=== PATIENT | female | born 1995 | race African-American/Black ===

== ENCOUNTER 2018-04-22 21:11 | Emergency (ER) | payer MEDICAID ==
[~2018-04-22] VITALS: Ht 157.5 cm; Wt 114.8 kg
[~2018-04-22 21:11] MED LIST: IBUPROFEN600 MG ORAL; NKM
[2018-04-22 21:25] VITALS: BP 108/67
[2018-04-22] MEDS ORDERED: NKM (21:26)
--- NOTE | 2018-04-22 21:30 | NUR ---
ED Nurse Note: pt walked in c/o abd pain on LLQ, has been going on for couple of months. denies n/v/d. denies injuries. normal bm. pt abd soft nontender and nondistended. ERMD at the bedside. Active bs throughout. will cont monitor.
--- NOTE | 2018-04-22 21:33 | Emergency Room Report ---
History of Present Illness General Chief Complaint: Abdominal Pain Source: Patient Present Illness HPI Is a 22-year-old female with no significant past medical history. She presents with chief complaint of left lower quadrant pain. His been on and off for last couple months. She saw her primary care doctor who ordered an ultrasound of the abdomen and pelvic. She said it was normal. Pain is described as throbbing nature. Comes and goes. Lasts only a few seconds. Denies any other complaint. Her second issue is that her menstrual has lasted for 2 weeks now. This is abnormal for her. She did not check any test. Denies any other complaint. Asymptomatic from pain right now. Allergies: Coded Allergies: NO KNOWN ALLERGIES (Unverified Allergy, Unknown, 03/06/15) Patient History Past Medical History: see triage record, old chart reviewed Past Surgical History: none Pertinent Family History: none Social History: Denies: smoking Last Menstrual Period: mar Now: No - unknown : 1 Para: 1 Immunizations: other Reviewed Nursing Documentation: PMH: Agreed; PSxH: Agreed Nursing Documentation-PMH Past Medical History: No Stated History Review of Systems Eye: Denies: eye pain, blurred vision ENT: Denies: ear pain, nose congestion, throat swelling Respiratory: Denies: cough, shortness of breath Cardiovascular: Denies: chest pain, palpitations Gastrointestinal: Reports: abdominal pain; Denies: diarrhea, nausea, vomiting Musculoskeletal: Denies: back pain, joint pain Skin: Denies: rash Neurological: Denies: headache, numbness Endocrine: Denies: increased thirst, increased urine Hematologic/Lymphatic: Denies: easy bruising All Other Systems: negative except mentioned in HPI Physical Exam Vital Signs Date Time Temp Pulse Resp B/P (MAP) Pulse Ox O2 Delivery O2 Flow Rate FiO2 04/22/18 21:20 98.4 74 14 108/67 98 Room Air vital signs normal Sp02 EP Interpretation: reviewed, normal General Appearance: well appearing, no apparent distress, alert, obese Head: normocephalic, atraumatic Eyes: bilateral eye PERRL, bilateral eye EOMI ENT: hearing grossly normal, normal pharynx Neck: full range of motion, supple, no meningismus Respiratory: chest non-tender, lungs clear, normal breath sounds Cardiovascular #1: regular rate, rhythm, no murmur Gastrointestinal: normal bowel sounds, non tender, no mass, no organomegaly, no bruit, non-distended Musculoskeletal: back normal, gait/station normal, normal range of motion Psychiatric: mood/affect normal Skin: warm/dry Medical Decision Making Diagnostic Impression: Primary Impression: Abdominal pain Qualified Codes: R10.32 - Left lower quadrant pain Additional Impression: Vaginal bleeding ER Course Patient with abdominal pain. Is intermittent in nature. No evidence of acute abdomen. She has no discharge in no symptom consistent with PID or cervicitis. Not . We'll discharge home. CT/MRI/US Diagnostic Results CT/MRI/US Diagnostic Results : Imaging Test Ordered: CT abdomen and pelvis Impression No acute abdomen per radiologist Last Vital Signs Date Time Temp Pulse Resp B/P (MAP) Pulse Ox O2 Delivery O2 Flow Rate FiO2 04/22/18 21:20 98.4 74 14 108/67 98 Room Air Status: unchanged Disposition: HOME, SELF-CARE Condition: Stable Patient Instructions: Abdominal Pain, Adult Additional Instructions: Follow-up with your doctor in 7 days. Return if worse. George Ortiz MD Apr 22, 2018 21:33
--- NOTE | 2018-04-22 21:40 | NUR ---
ED Nurse Note: urine specimen obtained and sent
[2018-04-22 21:53] LABS: APPEARANCE,URINE CLEAR; BILIRUBIN, URINE NEGATIVE (NEGATIVE); GLUCOSE, URINE (UA) NEGATIVE (NEGATIVE); KETONES,URINE NEGATIVE (NEGATIVE); LEUKOCYTE ESTERASE ,URINE 1+ (NEGATIVE); NITRITE,URINE NEGATIVE (NEGATIVE); PH,URINE 8 (4.5-8.0); PROTEIN,URINE NEGATIVE (NEGATIVE); UROBILINOGEN,URINE NORMAL MG/DL (0.0-1.0)
[2018-04-22 22:01] LABS: COLOR,URINE YELLOW
--- NOTE | 2018-04-22 22:40 | NUR ---
ED Nurse Note: pt cleared to d/c per ER provider order, pt discharge instruction provided, pt advised to follow up with pcp or return to ed if s/s worsen or new s/s develop, pt education done via discussion and hand out, wristband removed, pt verbalized understanding and agrees with plan. pt vss, ambulatory w/ steady gait, resp even and unlabored, airway intact, all belongings left with pt.
[2018-04-22 22:41] VITALS: BP 114/62
--- NOTE | 2018-04-23 09:49 | Diagnostic Imaging Report ---
Indication: Abdominal pain Technique: Continuous helical transaxial imaging of the abdomen and pelvis was obtained from the lung bases to the pubic symphysis. No intravenous contrast was administered. Coronal 2-D reformats were also obtained. Automatic Exposure Control was utilized. Total Dose length Product (DLP): 980.[address] Dose Index Volume (CTDIvol): 19.75 mGy Comparison: none Findings: The lung bases are clear. Gallbladder is contracted. There is no nephrolithiasis or hydronephrosis identified. There is an umbilical hernia containing fat. The appendix is seen and appears normal. No evidence of bowel obstruction. No free fluid or free air. Bladder is nondistended. Uterus noted. Both ovaries demonstrated. Some vacuum phenomena within the sacroiliac joints noted. Study limited by nonadministration of IV and oral contrast. IMPRESSION: Small umbilical hernia containing fat. Normal appendix Degenerative arthrosis both sacroiliac joints. Contracted gallbladder not evaluated well The CT scanner at [facility] is accredited by the [employer] and the scans are performed using dose optimization techniques as appropriate to a performed exam including Automatic Exposure control.
== END 2018-04-22 22:41 | disposition home or self-care (01) ==
LOC: EMR 21:32
DX: R10.32 Left lower quadrant pain (principal); N93.9 Abnormal uterine and vaginal bleeding, unspecified; K42.9 Umbilical hernia without obstruction or gangrene
CPT/HCPCS: 74176; 81003; 81025; 99284

== ENCOUNTER 2018-05-09 15:25 | Emergency (ER) | payer MEDICAID ==
[~2018-05-09] VITALS: Ht 157.5 cm; Wt 98.9 kg
[2018-05-09 15:47] VITALS: BP 136/82
--- NOTE | 2018-05-09 15:50 | NUR ---
ED Nurse Note: Patient walked into ED from home. patient c/o vaginal bleeding for 12 days, patient reports that she has been saturating 5 pads daily. patient reports bruises on body without injury. Sister at bedside. a/o x4, ambulatory steady gait
[2018-05-09] MEDS ORDERED: Ketorolac 30mg Inj IV ONE (16:00)
[2018-05-09 16:33] LABS: BASOPHILS % (AUTO) 0.9 % (0.0-2.0); EOSINOPHILS % (AUTO) 1.4 % (0.0-3.0); HEMATOCRIT 38.3 % (37.0-47.0); HEMOGLOBIN 11.7 G/DL (12.0-16.0); MEAN CORPUSCULAR VOLUME 71 FL (80-99); MONOCYTES % (AUTO) 6.5 % (1.0-10.0); NEUTROPHILS % (AUTO) 64.3 % (45.0-75.0); PLATELET COUNT 304 K/UL (150-450); RED CELL DISTRIBUTION WIDTH 13.9 % (11.6-14.8); WHITE BLOOD COUNT 9.5 K/UL (4.8-10.8)
[2018-05-09 16:49] LABS: ANION GAP 8 mmol/L (5-15); BLOOD UREA NITROGEN 14 mg/dL (7-18); CALCIUM 9.3 MG/DL (8.5-10.1); CARBON DIOXIDE 27 MMOL/L (21-32); CHLORIDE 102 MMOL/L (98-107); CREATININE 0.8 MG/DL (0.55-1.30); POTASSIUM 4.4 MMOL/L (3.5-5.1); SODIUM 137 MMOL/L (136-145)
[2018-05-09 16:54] LABS: INR 1.1 (0.9-1.1)
[2018-05-09 16:55] LABS: ALANINE AMINOTRANSFERASE 24 U/L (12-78); ALBUMIN 3.7 G/DL (3.4-5.0); ALBUMIN/GLOBULIN RATIO 0.8 (1.0-2.7); ALKALINE PHOSPHATASE 59 U/L (46-116); ASPARTATE AMINO TRANSFERASE 20 U/L (15-37); BILIRUBIN,TOTAL 0.2 MG/DL (0.2-1.0)
[2018-05-09] MEDS ORDERED: DiphenhydrAMINE 50mg/ml Inj ONE (16:56)
[2018-05-09] MEDS ORDERED: LORazepam Inj 2mg/ml 1ml ONE (16:56)
[2018-05-09] MEDS ORDERED: DiphenhydrAMINE 50mg/ml Inj IVP ONE (17:00)
[2018-05-09] MEDS ORDERED: LORazepam Inj 2mg/ml 1ml IV ONE (17:00)
--- NOTE | 2018-05-09 17:03 | NUR ---
ED Nurse Note: Meliza SIMPSON notified regarding hcg neg.
[2018-05-09 17:06] LABS: APPEARANCE,URINE VERY CLOUDY; BILIRUBIN, URINE NEGATIVE (NEGATIVE); GLUCOSE, URINE (UA) NEGATIVE (NEGATIVE); KETONES,URINE NEGATIVE (NEGATIVE); LEUKOCYTE ESTERASE ,URINE 1+ (NEGATIVE); NITRITE,URINE NEGATIVE (NEGATIVE); PH,URINE 6 (4.5-8.0); PROTEIN,URINE 3+ (NEGATIVE); UROBILINOGEN,URINE NORMAL MG/DL (0.0-1.0)
[2018-05-09 17:09] LABS: COLOR,URINE RED
--- NOTE | 2018-05-09 17:33 | Emergency Room Report ---
History of Present Illness General Chief Complaint: General Complaint Source: Patient Present Illness Allergies: Coded Allergies: NO KNOWN ALLERGIES (Unverified Allergy, Unknown, 03/06/15) Patient History Last Menstrual Period: on period : 1 Para: 0 Nursing Documentation-[facility] Past Medical History: No Stated History Physical Exam Vital Signs Date Time Temp Pulse Resp B/P (MAP) Pulse Ox O2 Delivery O2 Flow Rate FiO2 05/09/18 15:41 98.1 77 14 136/82 99 Room Air Medical Decision Making PA Attestation Dr. Singh is my supervising Physician whom patient management has been discussed with. Diagnostic Impression: Primary Impression: Metrorrhagia Additional Impression: Dysmenorrhea ER Course Ddx considered but are not limited to: Fibroid, ectopic , Fibroid, Spontaneous , DUB, metrorrhagia, menorrhagia, irregular cycles. Vital signs: are WNL, pt. is afebrile H&PE are most consistent with: [ ] ORDERS: -Urine hcg- Neg -UA: WNL -CBC: Hbg mildly low, PT is 12, otherwise unremarkable -CMP: WNL ED INTERVENTIONS: None at this time. DISCHARGE: At this time pt. is stable for d/c to home. Will provide printed patient care instructions, and any necessary prescriptions. Care plan and follow up instructions have been discussed with the patient prior to discharge. Last Vital Signs Date Time Temp Pulse Resp B/P (MAP) Pulse Ox O2 Delivery O2 Flow Rate FiO2 05/09/18 17:11 77 14 Room Air 05/09/18 16:34 98.1 05/09/18 15:47 136/82 99 Disposition: HOME, SELF-CARE Condition: Stable Scripts Aspirin/Acetaminophen/Caffeine (EXCEDRIN MIGRAINE GELTAB) 1 Each Tablet 1 EACH PO Q6HR, #30 TAB Prov: Meliza Chapa 05/09/18 Docusate Sodium* (COLACE*) 100 Mg Capsule 100 MG ORAL TWICE A DAY, #20 CAP Prov: Meliza Chapa 05/09/18 Iron,Carbonyl/Ascorbic Acid (IRON 100-VITAMIN C TABLET) 1 Each Tablet 1 EACH PO TID, #30 TAB Prov: Meliza Chapa 05/09/18 Ibuprofen* (MOTRIN*) 600 Mg Tablet 600 MG ORAL THREE TIMES A DAY, #30 TAB 0 Refills Prov: Meliza Chapa 05/09/18 Referrals: [facility]ERR[facility] (PCP) Patient Instructions: Dysmenorrhea, [id number], Metrorrhagia, [id number] Additional Instructions: Take medications as directed. Follow up with a OBGYN within 3-5 days, even if your symptoms have resolved. Return sooner to ED if new symptoms occur, or current symptoms become worse. - Please note that this Emergency Department Report was dictated using [employer] worker technology software, occasionally this can lead to erroneous entry secondary to interpretation by the dictation equipment. Meliza Chapa May 09, 2018 17:33
[2018-05-09] MEDS ORDERED: COLACE100 MG ORAL (17:40)
[2018-05-09] MEDS ORDERED: IBUPROFEN600 MG ORAL (17:40)
[2018-05-09] MEDS ORDERED: IRON 100-VITAM1 EACH PO (17:40)
[2018-05-09] MEDS ORDERED: EXCEDRIN MIGRA1 EACH PO (17:40)
[2018-05-09 18:02] VITALS: BP 136/82
--- NOTE | 2018-05-09 18:03 | NUR ---
ER DISCHARGE NOTE: Patient is cleared to be discharged per ERMD, pt is aox4, on room air, with stable vital signs. pt was given dc and prescription instructions, pt was able to verbalize understanding, pt id band and iv site removed without complications. pt is able to ambulate with steady gait. pt took all belongings. patient is escorted out of ED with her sister, sister stated that she will drive themselves home. Educated patient/sister so that patient cannot drive right now, patient /sister verbalized understanding. patient ambulated out of ED with steady gait
== END 2018-05-09 17:53 | disposition home or self-care (01) ==
LOC: EMR 17:23
DX: N92.1 Excessive and frequent menstruation with irregular cycle (principal); N94.6 Dysmenorrhea, unspecified
CPT/HCPCS: 36415; 80053; 81003; 81025; 85025; 85610; 85730; 96361; 96374; 96375; 99284; J0780; J1200; J1885

== ENCOUNTER 2020-05-17 21:55 | Inpatient (IN) | payer MEDICAID ==
[~2020-05-17] VITALS: Ht 157.5 cm; Wt 105.2 kg
[~2020-05-17 21:55] MED LIST changes: +COLACE100 MG ORAL; +EXCEDRIN MIGRA1 EACH PO; +IRON 100-VITAM1 EACH PO
--- NOTE | 2020-05-17 22:27 | Emergency Room Report ---
History of Present Illness General Chief Complaint: Generalized Weakness Source: Patient Present Illness HPI This 24-year-old female with a history of dysfunctional uterine bleeding. She had a transvaginal ultrasound that did not show any fibroids. She presents with chief complaint of weakness and dizziness. She was started on control pill by her car supervisor. Bleeding helped but she stopped menstrual bleeding in 2 weeks ago. She went back on the control pill few days ago. Her bleeding stopped but for the last couple weeks she been feeling very fatigued. She was having heavy vaginal bleeding with clots. Her fatigue is worse when she get up and walk. She felt like passing out with exertion. No chest pain. No fever chills but no nausea or vomiting. The reason she stopped the control pill because it was giving her nausea and headache. Allergies: Coded Allergies: NO KNOWN ALLERGIES (Unverified Allergy, Unknown, 03/06/15) COVID-19 Screening Contact w/high risk pt: No Experienced COVID-19 symptoms?: No COVID-19 Testing performed BICYCLE MECHANIC: No Patient History Past Medical History: see triage record, old chart reviewed Past Surgical History: none Pertinent Family History: none Social History: Denies: smoking Now: No Immunizations: other Reviewed Nursing Documentation: PMH: Agreed; PSxH: Agreed Nursing Documentation-PMH Past Medical History: No Stated History Review of Systems Constitutional: Reports: malaise Eye: Denies: eye pain, blurred vision ENT: Denies: ear pain, nose congestion, throat swelling Respiratory: Denies: cough, shortness of breath Cardiovascular: Denies: chest pain, palpitations Gastrointestinal: Denies: abdominal pain, diarrhea, nausea, vomiting Musculoskeletal: Denies: back pain, joint pain Skin: Denies: rash Neurological: Denies: headache, numbness Endocrine: Denies: increased thirst, increased urine Hematologic/Lymphatic: Denies: easy bruising All Other Systems: negative except mentioned in HPI Physical Exam Vital Signs Date Time Temp Pulse Resp B/P (MAP) Pulse Ox O2 Delivery O2 Flow Rate FiO2 05/17/20 22:06 98.1 102 20 80/54 (63) 100 Vitals with hypotension Sp02 EP Interpretation: reviewed, normal General Appearance: well appearing, no apparent distress, alert Head: normocephalic, atraumatic Eyes: bilateral eye PERRL, bilateral eye EOMI, bilateral eye conjunctivae pale ENT: hearing grossly normal, normal pharynx Neck: full range of motion, supple, no meningismus Respiratory: chest non-tender, lungs clear, normal breath sounds Cardiovascular #1: regular rate, rhythm, no murmur Gastrointestinal: normal bowel sounds, non tender, no mass, no organomegaly, no bruit, non-distended Musculoskeletal: back normal, normal range of motion, gait/station normal Psychiatric: mood/affect normal Procedures Critical Care Time Critical Care Time Critical care is mandated in this patient who presented with anemia requiring blood transfusion. Patient require my urgent intervention to attenuate the risks of metabolic collapse which may lead to cardiovascular collapse and . Critical care time is 35 minutes excluding any reportable procedure. Critical care time included evaluation, multiple reevaluation, looking at old charts, i nterpreting laboratory and diagnostic data, discussing case with patient and family and consultants, and charting. Medical Decision Making Diagnostic Impression: Primary Impression: Anemia Qualified Codes: D64.9 - Anemia, unspecified Additional Impression: Dysfunctional uterine bleeding ER Course This patient presents with severe anemia from her chronic dysfunctional uterine bleeding. At rest she is amiably stable. Blood pressure at rest is 113/43. She is orthostatic with exertion. Blood transfusion ordered. Will admit for blood transfusion and monitoring. I contacted Dr. Cao for admission. EKG Diagnostic Results Rate: normal, tachycardiac Rhythm: NSR ST Segments: no acute changes Rhythm Strip Diag. Results EP Interpretation: yes Rate: 100 Rhythm: NSR, no PVC's, no ectopy Last Vital Signs Date Time Temp Pulse Resp B/P (MAP) Pulse Ox O2 Delivery O2 Flow Rate FiO2 05/17/20 22:06 98.1 102 20 80/54 (63) 100 Status: improved Disposition: ADMITTED INPATIENT Condition: Serious George Ortiz MD May 17, 2020 22:27
--- NOTE | 2020-05-17 22:55 | NUR ---
ED Nurse Note: pt came in with generelalized weakness, pt is AOx4, ambulatory, labs drawn and sent to lab [facility]G in [facility] placed
[2020-05-17 22:58] VITALS: BP 109/51
[2020-05-17 23:04] LABS: HEMATOCRIT 13.9 % (37.0-47.0); MEAN CORPUSCULAR VOLUME 50 FL (80-99); PLATELET COUNT 376 K/UL (150-450); RED BLOOD COUNT 2.81 M/UL (4.20-5.40); RED CELL DISTRIBUTION WIDTH 16.2 % (11.6-14.8); WHITE BLOOD COUNT 11.9 K/UL (4.8-10.8)
[2020-05-17 23:08] LABS: HEMOGLOBIN 3.5 G/DL (12.0-16.0)
[2020-05-17 23:11] LABS: ANION GAP 10 mmol/L (5-15); BLOOD UREA NITROGEN 10 mg/dL (7-18); CARBON DIOXIDE 25 MMOL/L (21-32); CHLORIDE 101 MMOL/L (98-107); CREATININE 1.1 MG/DL (0.55-1.30); POTASSIUM 3.2 MMOL/L (3.5-5.1); SODIUM 136 MMOL/L (136-145)
[2020-05-17 23:12] LABS: CALCIUM 9.6 MG/DL (8.5-10.1)
[2020-05-18] VITALS (10 sets, daily range): BP systolic 78–113; BP diastolic 43–61
[2020-05-18 00:01] LABS: APPEARANCE,URINE CLEAR; BILIRUBIN, URINE NEGATIVE (NEGATIVE); GLUCOSE, URINE (UA) NEGATIVE (NEGATIVE); KETONES,URINE NEGATIVE (NEGATIVE); LEUKOCYTE ESTERASE ,URINE NEGATIVE (NEGATIVE); NITRITE,URINE NEGATIVE (NEGATIVE); PH,URINE 7 (4.5-8.0); PROTEIN,URINE NEGATIVE (NEGATIVE); UROBILINOGEN,URINE NORMAL MG/DL (0.0-1.0)
[2020-05-18 00:08] LABS: COLOR,URINE YELLOW
--- NOTE | 2020-05-18 00:08 | NUR ---
ED Nurse Note: urine collected sent to lab
--- NOTE | 2020-05-18 00:55 | NUR ---
ED Nurse Note: 1 unit of PRBCs collected from lab
[2020-05-18] MEDS ORDERED: Acetaminophen 500mg (ES) tab ORAL ONE ×2 (01:25→01:30)
--- NOTE | 2020-05-18 03:55 | NUR ---
ED Nurse Note: blood transfusion completed patient tolerated well, no reaction
--- NOTE | 2020-05-18 04:14 | NUR ---
ED Nurse Note: 2nd unit of PRBC started
--- NOTE | 2020-05-18 04:40 | NUR ---
TRANSFER TO FLOOR: Patient transferred to [facility] as ordered, per MD . Report given to Cely. Belongings sent with patient, declined offer to put in hospital safe money counted in ER w/ janitorial manager and on admitting floor with RN, belongings form filled, signed and witnessed
--- NOTE | 2020-05-18 04:55 | NUR ---
NURSE NOTES: Assumed pt's care at 0455 from ED. Pt's aox4, no acute respiratory distress noted, respirations even and unlabored, satting 100% on room air. Cont pack of red blood cells transfusion, tolerating well, no adv reactions noted. New order obtained from oncologist/assault amphibious vehicle officer for kdur 40meq x1 dose r/t hypokalemia. Skin is intact. Denies any pain. Safety and comfort measures maintained.
--- NOTE | 2020-05-18 06:33 | Consultation ---
History of Present Illness General Chief Complaint: Generalized Weakness Present Illness Allergies: Coded Allergies: NO KNOWN ALLERGIES (Unverified Allergy, Unknown, 03/06/15) Medication History Scheduled Aspirin/Acetaminophen/Caffeine (Excedrin Migraine Geltab), 1 EACH PO Q6HR Docusate Sodium* (Colace*), 100 MG ORAL TWICE A DAY Ibuprofen (Motrin), 600 MG ORAL THREE TIMES A DAY Iron,Carbonyl/Ascorbic Acid (Iron 100-Vitamin C Tablet), 1 EACH PO TID No Known Medications* (NKM - No Known Medications*), 0 ., (Reported) Patient History Healthcare decision maker Resuscitation status Advanced Directive on File Physical Exam Last 24 Hour Vital Signs Date Time Temp Pulse Resp B/P (MAP) Pulse Ox O2 Delivery O2 Flow Rate FiO2 05/18/20 05:39 99.2 80 18 93/61 (72) 100 05/18/20 05:39 Room Air 05/18/20 05:37 87 05/18/20 05:35 99.2 80 18 93/61 (72) 100 05/18/20 04:36 98.9 16 107/50 98 05/18/20 04:14 98.9 15 103/50 98 05/18/20 03:40 98.9 92 15 05/18/20 02:00 95 16 78/56 98 Room Air 05/18/20 02:00 99.0 05/18/20 00:55 100.0 122 16 113/48 100 Room Air 05/17/20 22:58 98.1 20 109/51 100 Room Air 05/17/20 22:58 102 20 Room Air 05/17/20 22:06 98.1 102 20 80/54 (63) 100 Intake and Output 05/17/20 05/18/20 19:00 07:00 Intake Total 615 ml Balance 615 ml Intake Oral 0 ml Blood Product 565 ml Other 50 ml # Voids 1 Laboratory Tests Test 05/17/20 22:48 05/17/20 23:54 White Blood Count 11.9 K/UL (4.8-10.8) H Red Blood Count 2.81 M/UL (4.20-5.40) L Hemoglobin 3.5 G/DL (12.0-16.0) *L Hematocrit 13.9 % (37.0-47.0) L Mean Corpuscular Volume 50 FL (80-99) L Mean Corpuscular Hemoglobin 12.5 PG (27.0-31.0) L Mean Corpuscular Hemoglobin Concent 25.3 G/DL (32.0-36.0) L Red Cell Distribution Width 16.2 % (11.6-14.8) H Platelet Count 376 K/UL (150-450) Mean Platelet Volume 5.7 FL (6.5-10.1) L Neutrophils (%) (Auto) % (45.0-75.0) Lymphocytes (%) (Auto) % (20.0-45.0) Monocytes (%) (Auto) % (1.0-10.0) Eosinophils (%) (Auto) % (0.0-3.0) Basophils (%) (Auto) % (0.0-2.0) Differential Total Cells Counted 100 Neutrophils % (Manual) 69 % (45-75) Lymphocytes % (Manual) 21 % (20-45) Monocytes % (Manual) 8 % (1-10) Eosinophils % (Manual) 0 % (0-3) Basophils % (Manual) 0 % (0-2) Band Neutrophils 2 % (0-8) Platelet Estimate Adequate Platelet Morphology Normal Polychromasia 1+ Hypochromasia 3+ Anisocytosis 2+ Microcytosis 2+ Tear Drop Cells 1+ Schistocytes Occasional Sodium Level 136 MMOL/L (136-145) Potassium Level 3.2 MMOL/L (3.5-5.1) L Chloride Level 101 MMOL/L (98-107) Carbon Dioxide Level 25 MMOL/L (21-32) Anion Gap 10 mmol/L (5-15) Blood Urea Nitrogen 10 mg/dL (7-18) Creatinine 1.1 MG/DL (0.55-1.30) Estimat Glomerular Filtration Rate > 60 mL/min (>60) Glucose Level 106 MG/DL (74-106) Calcium Level 9.6 MG/DL (8.5-10.1) Urine Color Yellow Urine Appearance Clear Urine pH 7 (4.5-8.0) Urine Specific [place] 1.005 (1.005-1.035) Urine Protein Negative (NEGATIVE) Urine Glucose (UA) Negative (NEGATIVE) Urine Ketones Negative (NEGATIVE) Urine Blood 2+ (NEGATIVE) H Urine Nitrite Negative (NEGATIVE) Urine Bilirubin Negative (NEGATIVE) Urine Urobilinogen Normal MG/DL (0.0-1.0) Urine Leukocyte Esterase Negative (NEGATIVE) Urine RBC 5-10 /HPF (0 - 2) H Urine WBC 0-2 /HPF (0 - 2) Urine Squamous Epithelial Cells Few /LPF (NONE/OCC) Urine Bacteria None /HPF (NONE) Urine HCG, Qualitative Negative (NEGATIVE) Height (Feet): 5 Height (Inches): 2.00 Weight (Pounds): 232 Medications Current Medications Medications (Trade) Dose Ordered Sig/Elisa Route PRN Reason Start Time Stop Time Status Last Admin Dose Admin Acetaminophen (Tylenol) 650 mg Q4HR PRN ORAL TEMP>100.5 05/18/20 01:30 Potassium Chloride (K-Dur) 40 meq ONCE ORAL 05/18/20 09:00 05/18/20 10:00 Assessment/Plan Assessment/Plan: Hematology Consultation REQ MD: Marianela Ellison RFC: Low hgb 3.5 DOS: 05/18/2020 ID This 24-year-old female with a history of dysfunctional uterine bleeding. She had a transvaginal ultrasound that did not show any fibroids. She presents with chief complaint of weakness and dizziness. She was started on control pill by her extrusion die repair manager. Bleeding helped but she stopped menstrual bleeding in 2 weeks ago. She went back on the control pill few days ago. Her bleeding stopped but for the last couple weeks she been feeling very fatigued. She was having heavy vaginal bleeding with clots. Her fatigue is worse when she get up and walk. She felt like passing out with exertion. No chest pain. No fever chills but no nausea or vomiting. The reason she stopped the control pill because it was giving her nausea and headache. Coded Allergies: NO KNOWN ALLERGIES (Unverified Allergy, Unknown, 03/06/15) COVID-19 Screening Contact w/high risk pt: No Experienced COVID-19 symptoms?: No COVID-19 Testing performed POST MANAGER: No Patient History Past Medical History: see triage record, old chart reviewed Past Surgical History: none Pertinent Family History: none Social History: Denies: smoking Now: No Immunizations: other Reviewed Nursing Documentation: PMH: Agreed; PSxH: Agreed Nursing Documentation-PMH Past Medical History: No Stated History Review of Systems Constitutional: Reports: malaise Eye: Denies: eye pain, blurred vision ENT: Denies: ear pain, nose congestion, throat swelling Respiratory: Denies: cough, shortness of breath Cardiovascular: Denies: chest pain, palpitations Gastrointestinal: Denies: abdominal pain, diarrhea, nausea, vomiting Musculoskeletal: Denies: back pain, joint pain Skin: Denies: rash Neurological: Denies: headache, numbness Endocrine: Denies: increased thirst, increased urine Hematologic/Lymphatic: Denies: easy bruising All Other Systems: negative except mentioned in HPI Physical Exam Vitals reviewed General Appearance: well appearing Head: normocephalic, atraumatic Eyes: bilateral eye PERRL, bilateral eye EOMI ENT: hearing grossly normal, normal pharynx Neck: full range of motion, supple Respiratory: chest non-tender, lungs clear, normal breath sounds Cardiovascular: regular rate, rhythm, no murmur Gastrointestinal: normal bowel sounds, non tender Musculoskeletal: back normal, normal range of motion, gait/station normal Psychiatric: mood/affect normal Labs: reviewed Imaging: noted Assessment and recs # Anemia of iron deficiency from abnormal uterine bleeding --> recommend outpatient ocps, now has been off them for 1-2 weeks --> recommend continous Ocps in the future once discharged --> anemia panel has been ordered --> will order Venofer x 5 days # Dysfunctional uterine bleeding --> kitchen utility associate has evaluated in the past # Hypotension likely due from severe anemia --> transfusion would help # Tachycardia --> likely due to above # Dvt ppx scds Appreciate consultation and dw Jamil Curtis MD May 18, 2020 06:33
--- NOTE | 2020-05-18 07:39 | NUR ---
NURSE HAND-OFF REPORT: Important Events on Shift: Pt was transfused X2, no reactions. hgb 3.5 repeat CBC scheduled for 0800. K 3.2 new order for kdur 40meq X1 dose. Patient Status: Diet: Pending Orders: Pending Results/Labs: Pending MD notification: Latest Vital Signs: Temperature 99.2 , Pulse 80 , B/P 93 /61 , Respiratory Rate 18 , O2 SAT 100 , Room Air, O2 Flow Rate . Vital Sign Comment: EKG Rhythm: Sinus Rhythm Rhythm change?: N MD Notified?: - MD Response: Latest [place] Fall Score: 20 Fall Risk: Low Risk Safety Measures: Call light Within Reach, Bed Alarm , Side Rails Side Rails x2, Bed position Low and Locked. Fall Precautions: Yellow Socks Patient Fall Education Report given to .
--- NOTE | 2020-05-18 07:51 | NUR ---
NURSE NOTES: Patient seen in bed in semi fowlers position with no acute sign of distress and no complaints of pain 0/10. the patient is on room air with oxygen saturation within normal limits. The patient has a 18G L FA IV that is clean, patent intact and saline locked. The patients bed is in lowest position, locked, side rails x2, bed aalrm in zone 1 and call light within reach.
[2020-05-18 10:12] LABS: HEMATOCRIT 19.7 % (37.0-47.0); MEAN CORPUSCULAR VOLUME 58 FL (80-99); PLATELET COUNT 287 K/UL (150-450); RED CELL DISTRIBUTION WIDTH 24.8 % (11.6-14.8); WHITE BLOOD COUNT 10.7 K/UL (4.8-10.8)
[2020-05-18 10:22] LABS: HEMOGLOBIN 5.7 G/DL (12.0-16.0)
--- NOTE | 2020-05-18 10:30 | NUR ---
NURSE NOTES: contacted Dr. Cooper for patients new hemoglobin value of 5.7. Left message awaiting orders.
--- NOTE | 2020-05-18 10:31 | NUR ---
NURSE NOTES: Contacted Dr. Cao due to patient not having DVT prophylaxis order. Left message awaiting order.
[2020-05-18 11:04] LABS: FERRITIN 7 NG/ML (8-388)
[2020-05-18 11:57] LABS: % IRON SATURATION 7 % (15-50); IRON 29 ug/dL (50-175); TOTAL IRON BINDING CAPACITY 404 ug/dL (250-450)
--- NOTE | 2020-05-18 13:14 | History and Physical Report ---
DATE OF ADMISSION: 05/18/2020 HISTORY OF PRESENT ILLNESS: The patient admitted for anemia. The patient apparently has been having dysfunctional uterine bleeding that had stopped since the patient was started on control pills. The patient has been complaining of shortness of breath, fatigue, weakness, headache, nausea. The patient has history of anemia, also has history of . The patient is admitted for severe anemia, mainly hemoglobin of 3.5 and vaginal bleeding. The patient denies shortness of breath. Denies cough. Denies diarrhea. Denies fever or chills. Denies rectal bleeding. Denies vomiting but does have nausea for about 3 days. PAST MEDICAL HISTORY: Significant for anemia, constipation, dysfunctional uterine bleeding. PAST SURGICAL HISTORY: . FAMILY HISTORY: Noncontributory. SOCIAL HISTORY: Denies history of smoking. Denies history of alcohol abuse. Denies history of drug abuse. MEDICATIONS: control pill, p.r.n. Colace. ALLERGIES: No known allergies. REVIEW OF SYSTEMS: HEENT: headaches. RESPIRATORY: Does have shortness of breath. Denies cough. CARDIOVASCULAR: Denies chest pain. Denies orthopnea. GASTROINTESTINAL: Does have nausea, no vomiting. No rectal bleeding. No abdominal pain. EXTREMITIES: Denies pain. CENTRAL NERVOUS SYSTEM: No change in speech pattern. Has generalized fatigue and weakness for about 3 days. PHYSICAL EXAMINATION: VITAL SIGNS: Temperature is 99.2, pulse is 80, blood pressure is 93/61. HEENT: PERRLA. CHEST: Clear to auscultation. CARDIOVASCULAR: Regular rate and rhythm. No murmurs or extra sounds. GASTROINTESTINAL: Soft, nontender, nondistended. No organomegaly. EXTREMITIES: No edema. Reflexes equal on both sides. Has generalized weakness. Moves all four extremities. LABORATORY DATA: WBC of 11.9, hemoglobin of 3.5, platelets of 376. Sodium 136, potassium of 3.2, BUN of 10, creatinine of 1.1. ASSESSMENT AND PLAN: Severe anemia, moderate hypokalemia, potassium was 3.2. I have basically consulted Dr. Jamil Cooper, Dr. Cohn as well as Dr. Pittman for the management of the dysfunctional uterine bleeding and also for transfusion as well as for the management of low BP most likely due to anemia, Dr. Pittman has been consulted for low potassium as well as low BP which is most likely due to anemia. We will monitor the patient closely. Dr. Cohn, Dr. Jamil Cooper, and Dr. Pittman were consulted for this patient Marianela Cao M.D. DR: Mike JOB#: [id number] CC:
--- NOTE | 2020-05-18 14:28 | Consultation ---
Consult Note Consult Note I am asked to evaluate the patient at the request of Dr. Ellison for fluid and electrolyte management Chief Complaint: Generalized Weakness This 24-year-old female with a history of dysfunctional uterine bleeding. She had a transvaginal ultrasound that did not show any fibroids. She presents with chief complaint of weakness and dizziness. 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 Bleeding helped but she stopped menstrual bleeding in 2 weeks ago. She went back on the control pill few days ago. Her bleeding stopped but for the last couple weeks she been feeling very fatigued. She was having heavy vaginal bleeding with clots. Her fatigue is worse when she get up and walk. She felt like passing out with exertion. No chest pain. No fever chills but no nausea or vomiting. The reason she stopped the control pill because it was giving her nausea and headache. Allergies: NO KNOWN ALLERGIES (Unverified Allergy, Unknown, 03/06/15) COVID-19 Screening Contact w/high risk pt: No Experienced COVID-19 symptoms?: No COVID-19 Testing performed TIG WELDER: No Past Medical History: see triage record, old chart reviewed Past Surgical History: none Pertinent Family History: none Social History: Denies: smoking Now: No Immunizations: other Reviewed Nursing Documentation: PMH: Agreed; PSxH: Agreed PHYSICAL EXAMINATION: VITAL SIGNS: Temperature is 99.2, pulse is 80, blood pressure is 93/61. HEENT: PERRLA. CHEST: Clear to auscultation. CARDIOVASCULAR: Regular rate and rhythm. No murmurs or extra sounds. GASTROINTESTINAL: Soft, nontender, nondistended. No organomegaly. EXTREMITIES: No edema. Reflexes equal on both sides. Has generalized weakness. Moves all four extremities. LABORATORY DATA: WBC of 11.9, hemoglobin of 3.5, platelets of 376. Sodium 136, potassium of 3.2, BUN of 10, creatinine of 1.1. . Assessment/Plan Hypokalemia Severe anemia Morbid obesity Sugg: IV iron Potassium supplement Gastric support Check TSH, lipid panel, hemoglobin A1c Continue per consultants Per orders Kt Pittman MD May 18, 2020 14:28
--- NOTE | 2020-05-18 15:44 | Cardiology Report ---
APPROVED REPORT EKG Measurement Heart [id number] <Conclusion> Sinus tachycardia Nonspecific T wave abnormality Abnormal ECG
[2020-05-18] MEDS ORDERED: Iron Sucrose 200 MG in NS 110 ML IVPB ONE (16:00)
--- NOTE | 2020-05-18 16:10 | Consultation ---
Consult Note Consult Note GYNECOLOGY CONSULTATION REPORT CC: Severe anemia secondary to prolonged heavy vaginal bleeding HPI: Patient is a 24yo who presented to the ER with fatigue/dizziness and other vague complaints, found to have Hgb 3.5. She is s/p 2u pRBCs, 1u running currently, and 1 more unit pending. She reports a >1y history of irregular, heavy bleeding. She has been evaluated by her PCP and was started on OCPs, however she had a headache and nausea and stopped on her own. She then had another episode of heavy bleeding, which prompted her to restart her pills. She currently denies any pain or bleeding and is feeling better than she did on admission. Per her history, she describes likely PCOS as a source of her bleeding issues (AUB-O), and was instructed to lose weight, continue OCPs, and follow up this month with her PCP. No other issues at this time. PMH: Obesity, new diagnosis of anemia on admission PSH: (2014) MEDS: MVI, Estarylla OCPs ALLERGIES: NKDA OBHX: - term for intolerance (2014) GYNHX: Last Pap recent, no hx abnl Pap, last STI screen negative. Irregular, heavy MP since March 2019, evaluated by PCP - likely PCOS (AUB-O) SOCHX: Lives with mother, not currently working, denies T/E/E FAMHX: Father - DM, HTN. Mother healthy. Otherwise non-contributory VITALS: BP 94/43, HR 96, T 97.5, RR 20, O2 99% RA EXAM: Gen: Pale, otherwise well-appearing, NAD HEENT: MMM, OP clear Neck: No gross thyromegaly CV: No tachycardia Pulm: No increased work of breathing Abd: No tenderness Pelvic: Deferred, no bleeding currently Ext: No calf TTP Neuro: Intact grossly LABS: Test 05/17/20 22:48 05/17/20 23:54 05/18/20 08:35 White Blood Count 11.9 K/UL (4.8-10.8) 10.7 K/UL (4.8-10.8) Red Blood Count 2.81 M/UL (4.20-5.40) 3.40 M/UL (4.20-5.40) Hemoglobin 3.5 G/DL (12.0-16.0) 5.7 G/DL (12.0-16.0) Hematocrit 13.9 % (37.0-47.0) 19.7 % (37.0-47.0) Mean Corpuscular Volume 50 FL (80-99) 58 FL (80-99) Mean Corpuscular Hemoglobin 12.5 PG (27.0-31.0) 16.6 PG (27.0-31.0) Mean Corpuscular Hemoglobin Concent 25.3 G/DL (32.0-36.0) 28.7 G/DL (32.0-36.0) Red Cell Distribution Width 16.2 % (11.6-14.8) 24.8 % (11.6-14.8) Platelet Count 376 K/UL (150-450) 287 K/UL (150-450) Mean Platelet Volume 5.7 FL (6.5-10.1) 5.5 FL (6.5-10.1) Neutrophils (%) (Auto) % (45.0-75.0) % (45.0-75.0) Lymphocytes (%) (Auto) % (20.0-45.0) % (20.0-45.0) Monocytes (%) (Auto) % (1.0-10.0) % (1.0-10.0) Eosinophils (%) (Auto) % (0.0-3.0) % (0.0-3.0) Basophils (%) (Auto) % (0.0-2.0) % (0.0-2.0) Differential Total Cells Counted 100 100 Neutrophils % (Manual) 69 % (45-75) 75 % (45-75) Lymphocytes % (Manual) 21 % (20-45) 20 % (20-45) Monocytes % (Manual) 8 % (1-10) 4 % (1-10) Eosinophils % (Manual) 0 % (0-3) 1 % (0-3) Basophils % (Manual) 0 % (0-2) 0 % (0-2) Band Neutrophils 2 % (0-8) 0 % (0-8) Platelet Estimate Adequate Adequate Platelet Morphology Normal Normal Polychromasia 1+ Hypochromasia 3+ 3+ Anisocytosis 2+ 3+ Microcytosis 2+ Tear Drop Cells 1+ Schistocytes Occasional Sodium Level 136 MMOL/L (136-145) Potassium Level 3.2 MMOL/L (3.5-5.1) Chloride Level 101 MMOL/L (98-107) Carbon Dioxide Level 25 MMOL/L (21-32) Anion Gap 10 mmol/L (5-15) Blood Urea Nitrogen 10 mg/dL (7-18) Creatinine 1.1 MG/DL (0.55-1.30) Estimat Glomerular Filtration Rate > 60 mL/min (>60) Glucose Level 106 MG/DL (74-106) Calcium Level 9.6 MG/DL (8.5-10.1) Urine Color Yellow Urine Appearance Clear Urine pH 7 (4.5-8.0) Urine Specific [place] 1.005 (1.005-1.035) Urine Protein Negative (NEGATIVE) Urine Glucose (UA) Negative (NEGATIVE) Urine Ketones Negative (NEGATIVE) Urine Blood 2+ (NEGATIVE) Urine Nitrite Negative (NEGATIVE) Urine Bilirubin Negative (NEGATIVE) Urine Urobilinogen Normal MG/DL (0.0-1.0) Urine Leukocyte Esterase Negative (NEGATIVE) Urine RBC 5-10 /HPF (0 - 2) Urine WBC 0-2 /HPF (0 - 2) Urine Squamous Epithelial Cells Few /LPF (NONE/OCC) Urine Bacteria None /HPF (NONE) Urine HCG, Qualitative Negative (NEGATIVE) Reticulocyte Count 1.6 % (0.5-2.0) Fibrinogen 367 mg/dL (200-400) Iron Level 29 ug/dL (50-175) Total Iron Binding Capacity 404 ug/dL (250-450) Percent Iron Saturation 7 % (15-50) Unsaturated Iron Binding 375 ug/dL (112-346) Ferritin 7 NG/ML (8-388) Vitamin B12 Level 417 PG/ML (193-986) Folate 38.6 NG/ML (8.6-58.9) IMAGING: Pelvis US done at outside facility, records unavailable - patient reports it was normal Assessment/Plan 24yo with severe anemia secondary to prolonged, heavy, irregular menses - likely AUB-O -Patient has good follow up with PCP - will call this week to schedule to be seen [facility] given current hospitalization and inability to adhere to medical management due to side effects on OCPs - Consider Zofran PRN for nausea related to OCP use - Anticipate PCP will switch her to another pill - discussed this with patient - Recommend continuous OCPs for now - Recommend weight loss and close follow up with PCP - Continue current inpatient management and workup of anemia per primary team Thank you for allowing me to participate in this patient's care. Signed: MD Gualberto Campos Carla M.D. May 18, 2020 16:10
[2020-05-18] MEDS: Docusate 100mg cap ORAL SCH (17:55)
--- NOTE | 2020-05-18 17:56 | NUR ---
NURSE NOTES: Venofer due at 1600 is being held off due to patient receiving PRBCs at this time and to avoid iron overload will be given after last unit of PRBCs is administered.
--- NOTE | 2020-05-18 19:03 | NUR ---
NURSE HAND-OFF REPORT: Important Events on Shift:[2 Units PRBCs] Patient Status: [Full code] Diet: [Regular ] Pending Orders: [N/A] Pending Results/Labs:[N/A] Pending MD notification:[N/A] Latest Vital Signs: Temperature 98.4 , Pulse 101 , B/P 104 /60 , Respiratory Rate 18 , O2 SAT 99 , Room Air, O2 Flow Rate . Vital Sign Comment: [] EKG Rhythm: Sinus Tachycardia Rhythm change?: Y MD Notified?: N - MD Response: Latest [place] Fall Score: 20 Fall Risk: Low Risk Safety Measures: Call light Within Reach, Bed Alarm Zone 1, Side Rails Side Rails x2, Bed position Low and Locked. Fall Precautions: Yellow Socks Patient Fall Education Report given to [RAFIQ Vieyra].
--- NOTE | 2020-05-18 19:05 | NUR ---
NURSE NOTES: Report received from RAFIQ Monteiro. Upon assessment pt is awake in bed; appears lethargic; A/Ox4. Responsive to verbal/tactile stimuli. 5-lead EKG shows SR at 90BPM. 0/10 pain per patient. Right IV patent and intact running PRBC. Bed kept in lowest and locked position. Side rails up x2. Call light within reach. Will continue monitoring.
[2020-05-18] MEDS ORDERED: Iron Sucrose 100 MG in NS 55 ML IVPB SCH (21:00)
--- NOTE | 2020-05-18 21:00 | NUR ---
NURSE NOTES: 1 bag of PRBC infused. SBP 100's. No adverse side effects observed. Denies SOB, itching, or change in temp. Pt ambulating to restroom. No s/s of distress noted. Venofer due at 1600 today is now infusing. Will monitor.
[2020-05-19] VITALS: BP 101/55
--- NOTE | 2020-05-19 00:11 | NUR ---
NURSE NOTES: Observed pt ambulating to restroom x3 during the night. Gait is steady. No distress noted. Denies pain. NSR on monitor.
[2020-05-19 04:00] VITALS: BP 118/65
--- NOTE | 2020-05-19 06:39 | Hematology/Onc Progress Note ---
Assessment/Plan Assessment/Plan Assessment and recs # Anemia of iron deficiency from abnormal uterine bleeding --> recommend outpatient ocps, now has been off them for 1-2 weeks --> recommend continous Ocps in the future once discharged --> anemia panel has been ordered --> will order Venofer x 5 days --> plumber recs has been reviewed # Dysfunctional uterine bleeding --> plumber has evaluated in the past # Hypotension likely due from severe anemia --> transfusion would help # Tachycardia --> likely due to above # Dvt ppx scds Appreciate consultation and dw RN Subjective Constitutional: Denies: no symptoms, chills, fever, malaise, weakness, other HEENT: Denies: no symptoms, eye pain, blurred vision, tearing, double vision, ear pain, ear discharge, nose pain, nose congestion, throat pain, throat swelli ng, mouth pain, mouth swelling, other Cardiovascular: Denies: no symptoms, chest pain, edema, irregular heart rate, lightheadedness, palpitations, syncope, other Gastrointestinal/Abdominal: Denies: no symptoms, abdomen distended, abdominal pain, black stools, tarry stools, blood in stool, constipated, diarrhea, difficulty swallowing, nausea, poor appetite, poor fluid intake, rectal bleeding, vomiting, other Genitourinary: Denies: no symptoms, burning, discharge, frequency, flank pain, hematuria, incontinence, pain, urgency, other Neurologic/Psychiatric: Denies: no symptoms, anxiety, depressed, emotional problems, headache, numbness, paresthesia, pre-existing deficit, seizure, tingling, tremors, weakness, other Endocrine: Denies: no symptoms, excessive sweating, flushing, intolerance to cold, intolerance to heat, increased hunger, increased thirst, increased urine, unexplained weight gain, unexplained weight loss, other Hematologic/Lymphatic: Denies: no symptoms, anemia, easy bleeding, easy bruising, adenopathy, other Allergies: Coded Allergies: NO KNOWN ALLERGIES (Unverified Allergy, Unknown, 03/06/15) Subjective 3/3 meds noted, has been started on iv iron, hgb is improved Objective Objective Current Medications Medications (Trade) Dose Ordered Sig/Elisa Route PRN Reason Start Time Stop Time Status Last Admin Dose Admin Acetaminophen (Tylenol) 650 mg Q4HR PRN ORAL TEMP>100.5 05/18/20 01:30 Docusate Sodium (Colace) 100 mg TWICE A DAY ORAL 05/18/20 18:00 06/17/20 17:59 05/18/20 17:55 Famotidine (Pepcid) 20 mg BID ORAL 05/18/20 18:00 08/16/20 17:59 05/18/20 17:55 Iron Sucrose 100 mg/Sodium Chloride 60 ml @ 240 mls/hr BEDTIME IVPB 05/19/20 21:00 05/23/20 21:14 Potassium Chloride (K-Dur) 40 meq DAILY ORAL 05/19/20 09:00 08/17/20 08:59 Sodium Chloride 1,000 ml @ 75 mls/hr [id number] IV 05/19/20 08:00 06/18/20 07:59 Last 24 Hour Vital Signs Date Time Temp Pulse Resp B/P (MAP) Pulse Ox O2 Delivery O2 Flow Rate FiO2 05/19/20 04:00 98.0 67 18 118/65 (82) 98 05/19/20 04:00 68 05/19/20 00:00 70 05/19/20 00:00 98.7 68 18 101/55 (70) 100 05/18/20 21:00 Room Air 05/18/20 20:00 98.9 84 19 100/55 (70) 98 05/18/20 20:00 90 05/18/20 16:00 101 05/18/20 16:00 98.4 82 18 104/60 (75) 99 05/18/20 12:00 97.5 96 20 94/43 (60) 99 05/18/20 12:00 84 05/18/20 09:00 Room Air 05/18/20 08:00 86 05/18/20 08:00 97.9 84 18 100/53 (69) 100 05/18/20 05:39 99.2 80 18 93/61 (72) 100 05/18/20 05:39 Room Air 05/18/20 05:37 87 05/18/20 05:35 99.2 80 18 93/61 (72) 100 05/18/20 04:36 98.9 16 107/50 98 05/18/20 04:14 98.9 15 103/50 98 05/18/20 03:40 98.9 92 15 05/18/20 02:00 95 16 78/56 98 Room Air 05/18/20 02:00 99.0 05/18/20 00:55 100.0 122 16 113/48 100 Room Air 05/17/20 22:58 98.1 20 109/51 100 Room Air 05/17/20 22:58 102 20 Room Air 05/17/20 22:06 98.1 102 20 80/54 (63) 100 Intake and Output 05/18/20 05/19/20 19:00 07:00 Intake Total 360 ml 356 ml Balance 360 ml 356 ml Intake Oral 360 ml 100 ml IV Total 256 ml # Voids 3 4 Labs Test 05/17/20 22:48 05/17/20 23:54 05/18/20 08:35 05/19/20 06:10 White Blood Count 11.9 K/UL (4.8-10.8) 10.7 K/UL (4.8-10.8) Red Blood Count 2.81 M/UL (4.20-5.40) 3.40 M/UL (4.20-5.40) Hemoglobin 3.5 G/DL (12.0-16.0) 5.7 G/DL (12.0-16.0) Hematocrit 13.9 % (37.0-47.0) 19.7 % (37.0-47.0) Mean Corpuscular Volume 50 FL (80-99) 58 FL (80-99) Mean Corpuscular Hemoglobin 12.5 PG (27.0-31.0) 16.6 PG (27.0-31.0) Mean Corpuscular Hemoglobin Concent 25.3 G/DL (32.0-36.0) 28.7 G/DL (32.0-36.0) Red Cell Distribution Width 16.2 % (11.6-14.8) 24.8 % (11.6-14.8) Platelet Count 376 K/UL (150-450) 287 K/UL (150-450) Mean Platelet Volume 5.7 FL (6.5-10.1) 5.5 FL (6.5-10.1) Neutrophils (%) (Auto) % (45.0-75.0) % (45.0-75.0) Lymphocytes (%) (Auto) % (20.0-45.0) % (20.0-45.0) Monocytes (%) (Auto) % (1.0-10.0) % (1.0-10.0) Eosinophils (%) (Auto) % (0.0-3.0) % (0.0-3.0) Basophils (%) (Auto) % (0.0-2.0) % (0.0-2.0) Differential Total Cells Counted 100 100 Neutrophils % (Manual) 69 % (45-75) 75 % (45-75) Lymphocytes % (Manual) 21 % (20-45) 20 % (20-45) Monocytes % (Manual) 8 % (1-10) 4 % (1-10) Eosinophils % (Manual) 0 % (0-3) 1 % (0-3) Basophils % (Manual) 0 % (0-2) 0 % (0-2) Band Neutrophils 2 % (0-8) 0 % (0-8) Platelet Estimate Adequate Adequate Platelet Morphology Normal Normal Polychromasia 1+ Hypochromasia 3+ 3+ Anisocytosis 2+ 3+ Microcytosis 2+ Tear Drop Cells 1+ Schistocytes Occasional Sodium Level 136 MMOL/L (136-145) Potassium Level 3.2 MMOL/L (3.5-5.1) Chloride Level 101 MMOL/L (98-107) Carbon Dioxide Level 25 MMOL/L (21-32) Anion Gap 10 mmol/L (5-15) Blood Urea Nitrogen 10 mg/dL (7-18) Creatinine 1.1 MG/DL (0.55-1.30) Estimat Glomerular Filtration Rate > 60 mL/min (>60) Glucose Level 106 MG/DL (74-106) Calcium Level 9.6 MG/DL (8.5-10.1) Urine Color Yellow Urine Appearance Clear Urine pH 7 (4.5-8.0) Urine Specific [place] 1.005 (1.005-1.035) Urine Protein Negative (NEGATIVE) Urine Glucose (UA) Negative (NEGATIVE) Urine Ketones Negative (NEGATIVE) Urine Blood 2+ (NEGATIVE) Urine Nitrite Negative (NEGATIVE) Urine Bilirubin Negative (NEGATIVE) Urine Urobilinogen Normal MG/DL (0.0-1.0) Urine Leukocyte Esterase Negative (NEGATIVE) Urine RBC 5-10 /HPF (0 - 2) Urine WBC 0-2 /HPF (0 - 2) Urine Squamous Epithelial Cells Few /LPF (NONE/OCC) Urine Bacteria None /HPF (NONE) Urine HCG, Qualitative Negative (NEGATIVE) Reticulocyte Count 1.6 % (0.5-2.0) Fibrinogen 367 mg/dL (200-400) Iron Level 29 ug/dL (50-175) Total Iron Binding Capacity 404 ug/dL (250-450) Percent Iron Saturation 7 % (15-50) Unsaturated Iron Binding 375 ug/dL (112-346) Ferritin 7 NG/ML (8-388) Vitamin B12 Level 417 PG/ML (193-986) Folate 38.6 NG/ML (8.6-58.9) Height (Feet): 5 Height (Inches): 2.00 Weight (Pounds): 232 Objective Physical Exam Vitals reviewed General Appearance: well appearing Head: normocephalic, atraumatic Eyes: bilateral eye PERRL, bilateral eye EOMI ENT: hearing grossly normal, normal pharynx Neck: full range of motion, supple Respiratory: chest non-tender, lungs clear, normal breath sounds Cardiovascular: regular rate, rhythm, no murmur Gastrointestinal: normal bowel sounds, non tender Musculoskeletal: back normal, normal range of motion, gait/station normal Psychiatric: mood/affect normal Jamil Cooper MD May 19, 2020 06:39
[2020-05-19 06:52] LABS: HEMATOCRIT 26.2 % (37.0-47.0); HEMOGLOBIN 7.8 G/DL (12.0-16.0); MEAN CORPUSCULAR VOLUME 67 FL (80-99); PLATELET COUNT 229 K/UL (150-450); RED BLOOD COUNT 3.91 M/UL (4.20-5.40); RED CELL DISTRIBUTION WIDTH 28.9 % (11.6-14.8); WHITE BLOOD COUNT 8.3 K/UL (4.8-10.8)
[2020-05-19 07:04] LABS: BASOPHILS % (AUTO) 0.6 % (0.0-2.0); EOSINOPHILS % (AUTO) 1.4 % (0.0-3.0); MONOCYTES % (AUTO) 7.2 % (1.0-10.0); NEUTROPHILS % (AUTO) 60.8 % (45.0-75.0)
[2020-05-19 07:16] LABS: ALANINE AMINOTRANSFERASE 11 U/L (12-78); ALBUMIN/GLOBULIN RATIO 0.8 (1.0-2.7); ALKALINE PHOSPHATASE 52 U/L (46-116); ANION GAP 10 mmol/L (5-15); ASPARTATE AMINO TRANSFERASE 11 U/L (15-37); BILIRUBIN,TOTAL 0.2 MG/DL (0.2-1.0); BLOOD UREA NITROGEN 8 mg/dL (7-18); CARBON DIOXIDE 23 MMOL/L (21-32); CHLORIDE 106 MMOL/L (98-107); CHOLESTEROL 170 MG/DL (< 200); CREATININE 0.9 MG/DL (0.55-1.30); HDL CHOLESTEROL 57 MG/DL (40-60); SODIUM 139 MMOL/L (136-145); TRIGLYCERIDES 70 MG/DL (30-150)
--- NOTE | 2020-05-19 07:28 | NUR ---
NURSE NOTES: Patient seen in bed in semi fowlers position with no acute signs of distress and no complaints of pain 0/10. Patient is on room air with oxygen saturation within normal limits. The patient has a L UA 20G IV that is clean, patent intact and saline locked. the patients bed is in lowest position, locked, side rails x2 and call light within reach. Patient instructed to press call light for further needs.
[2020-05-19 07:55] LABS: PHOSPHORUS 3.6 MG/DL (2.5-4.9)
[2020-05-19 08:00] VITALS: BP 117/57
[2020-05-19] MEDS: Docusate 100mg cap ORAL SCH ×2 (08:31→17:14)
[2020-05-19] MEDS ORDERED: BIRTH CONTROL PO (09:33)
[2020-05-19] MEDS ORDERED: MULTIVITAMINS1 EAC2 ORAL (09:33)
--- NOTE | 2020-05-19 09:58 | NUR ---
NURSE NOTES: Contacted Dr. Cooper for patients HGB of 7.8 that is trending up. ordered 1 Unit if Patient is weak. Patient denies weakness, with steady gait no SOB on exertion with bilateral arm, hand and leg strength 5/5.
--- NOTE | 2020-05-19 11:46 | NUR ---
INSURANCE CLINICALS FAXED TO [facility]
[2020-05-19 12:00] VITALS: BP 118/75
--- NOTE | 2020-05-19 13:53 | Nephrology Progress Note ---
Assessment/Plan Problem List: (1) Hypokalemia (2) Anemia (3) Dysfunctional uterine bleeding (4) Proteinuria (5) Obesity Assessment Hypokalemia Severe anemia Morbid obesity Plan May 19: Labs reviewed. Electrolytes and renal parameters stable. Hemoglobin higher. Hemoglobin A1c and TSH are within normal limits. Previously: IV iron Potassium supplement Gastric support Check TSH, lipid panel, hemoglobin A1c Continue per consultants Per orders Subjective ROS Limited/Unobtainable: No Constitutional: Reports: malaise Objective Objective Last 24 Hour Vital Signs Date Time Temp Pulse Resp B/P (MAP) Pulse Ox O2 Delivery O2 Flow Rate FiO2 05/19/20 12:00 82 05/19/20 12:00 96.8 75 18 118/75 (89) 98 05/19/20 09:00 Room Air 05/19/20 08:00 65 05/19/20 08:00 98.5 56 20 117/57 (77) 98 05/19/20 04:00 98.0 67 18 118/65 (82) 98 05/19/20 04:00 68 05/19/20 00:00 70 05/19/20 00:00 98.7 68 18 101/55 (70) 100 05/18/20 21:00 Room Air 05/18/20 20:00 98.9 84 19 100/55 (70) 98 05/18/20 20:00 90 05/18/20 16:00 101 05/18/20 16:00 98.4 82 18 104/60 (75) 99 Intake and Output 05/18/20 05/19/20 19:00 07:00 Intake Total 360 ml 356 ml Balance 360 ml 356 ml Intake Oral 360 ml 100 ml IV Total 256 ml # Voids 3 4 Laboratory Tests 05/19/20 06:10: White Blood Count 8.3, Red Blood Count 3.91L, Hemoglobin 7.8#L, Hematocrit 26.2#L, Mean Corpuscular Volume 67#L, Mean Corpuscular Hemoglobin 20.0L, Mean Corpuscular Hemoglobin Concent 29.8L, Red Cell Distribution Width 28.9H, Platelet Count 229, Mean Platelet Volume 5.9L, Neutrophils (%) (Auto) 60.8, Lymphocytes (%) (Auto) 30.0, Monocytes (%) (Auto) 7.2, Eosinophils (%) (Auto) 1.4, Basophils (%) (Auto) 0.6, Sodium Level 139, Potassium Level 4.0, Chloride Level 106, Carbon Dioxide Level 23, Anion Gap 10, Blood Urea Nitrogen 8, Creatinine 0.9, Estimat Glomerular Filtration Rate > 60, Glucose Level 83, Hemoglobin A1c 5.0, Uric Acid 5.0, Calcium Level 9.0, Phosphorus Level 3.6, Magnesium Level 1.9, Total Bilirubin 0.2, Gamma Glutamyl Transpeptidase 13, Aspartate Amino Transf (AST/SGOT) 11L, Alanine Aminotransferase (ALT/SGPT) 11L, Alkaline Phosphatase 52, C-Reactive Protein, Quantitative 1.1H, Pro-B-Type Natriuretic Peptide 253H, Total Protein 6.8, Albumin 3.0L, Globulin 3.8, Albumin/Globulin Ratio 0.8L, Triglycerides Level 70, Cholesterol Level 170, LDL Cholesterol 100, HDL Cholesterol 57, Cholesterol/HDL Ratio 3.0L, Thyroid Stimulating Hormone (TSH) 2.794 Height (Feet): 5 Height (Inches): 2.00 Weight (Pounds): 232 General Appearance: no apparent distress Cardiovascular: normal rate Respiratory/Chest: lungs clear Abdomen: soft Kt Pittman MD May 19, 2020 13:53
[2020-05-19 16:00] VITALS: BP 121/81
--- NOTE | 2020-05-19 17:14 | NUR ---
NURSE NOTES: Patient refused 1800 medication, patient educated on medication along with side effects. Patient stated, " no I dont want them".
--- NOTE | 2020-05-19 19:30 | NUR ---
NURSE NOTES: Patient received from RAFIQ Monteiro. Patient is awake, alert and oriented x 4. Patient is on room air with no signs of acute respiratory distress. Patient wants a cup of ice and water, will tend to her needs. Patient is noted to be able to stand up and walk. Patient has a 20 gauge IV on her right upper arm with 1/2 NS running at 75 ml/hr. Bed is in the lowest position and locked, call light within reach. Will continue to monitor.
--- NOTE | 2020-05-19 19:33 | General Progress Note ---
Subjective ROS Limited/Unobtainable: Yes Allergies: Coded Allergies: NO KNOWN ALLERGIES (Unverified Allergy, Unknown, 03/06/15) Objective Last 24 Hour Vital Signs Date Time Temp Pulse Resp B/P (MAP) Pulse Ox O2 Delivery O2 Flow Rate FiO2 05/19/20 16:00 98.1 81 20 121/81 (94) 98 05/19/20 16:00 66 05/19/20 12:00 82 05/19/20 12:00 96.8 75 18 118/75 (89) 98 05/19/20 09:00 Room Air 05/19/20 08:00 65 05/19/20 08:00 98.5 56 20 117/57 (77) 98 05/19/20 04:00 98.0 67 18 118/65 (82) 98 05/19/20 04:00 68 05/19/20 00:00 70 05/19/20 00:00 98.7 68 18 101/55 (70) 100 05/18/20 21:00 Room Air 05/18/20 20:00 98.9 84 19 100/55 (70) 98 05/18/20 20:00 90 Intake and Output 05/18/20 05/19/20 19:00 07:00 Intake Total 360 ml 356 ml Balance 360 ml 356 ml Intake Oral 360 ml 100 ml IV Total 256 ml # Voids 3 4 Laboratory Tests 05/19/20 06:10: White Blood Count 8.3, Red Blood Count 3.91L, Hemoglobin 7.8#L, Hematocrit 26.2#L, Mean Corpuscular Volume 67#L, Mean Corpuscular Hemoglobin 20.0L, Mean Corpuscular Hemoglobin Concent 29.8L, Red Cell Distribution Width 28.9H, Platelet Count 229, Mean Platelet Volume 5.9L, Neutrophils (%) (Auto) 60.8, Lymphocytes (%) (Auto) 30.0, Monocytes (%) (Auto) 7.2, Eosinophils (%) (Auto) 1.4, Basophils (%) (Auto) 0.6, Sodium Level 139, Potassium Level 4.0, Chloride Level 106, Carbon Dioxide Level 23, Anion Gap 10, Blood Urea Nitrogen 8, Creat inine 0.9, Estimat Glomerular Filtration Rate > 60, Glucose Level 83, Hemoglobin A1c 5.0, Uric Acid 5.0, Calcium Level 9.0, Phosphorus Level 3.6, Magnesium Level 1.9, Total Bilirubin 0.2, Gamma Glutamyl Transpeptidase 13, Aspartate Amino Transf (AST/SGOT) 11L, Alanine Aminotransferase (ALT/SGPT) 11L, Alkaline Phosphatase 52, C-Reactive Protein, Quantitative 1.1H, Pro-B-Type Natriuretic Peptide 253H, Total Protein 6.8, Albumin 3.0L, Globulin 3.8, Albumin/Globulin Ratio 0.8L, Triglycerides Level 70, Cholesterol Level 170, LDL Cholesterol 100, HDL Cholesterol 57, Cholesterol/HDL Ratio 3.0L, Thyroid Stimulating Hormone (TSH) 2.794 Height (Feet): 5 Height (Inches): 2.00 Weight (Pounds): 232 Assessment/Plan Problem List: (1) Dysfunctional uterine bleeding ICD Codes: N93.8 - Other specified abnormal uterine and vaginal bleeding SNOMED: 34634772997420 (2) Hypokalemia ICD Codes: E87.6 - Hypokalemia SNOMED: 88141212 (3) Vaginal bleeding ICD Codes: N93.9 - Abnormal uterine and vaginal bleeding, unspecified SNOMED: 711547975 (4) Anemia ICD Codes: D64.9 - Anemia, unspecified SNOMED: 906007524 Qualifiers: Qualified Codes: D64.9 - Anemia, unspecified (5) Proteinuria ICD Codes: R80.9 - Proteinuria, unspecified SNOMED: 65179702 (6) Obesity ICD Codes: E66.9 - Obesity, unspecified SNOMED: 465593211, 662352059 Status: progressing Assessment/Plan: still anemic despite transfusion vaginal bleeding check cbc in am and monitror for bleeding Marianela Cao MD May 19, 2020 19:33
--- NOTE | 2020-05-19 19:35 | NUR ---
NURSE HAND-OFF REPORT: Important Events on Shift:[BM, CBC ordered, contacted MD for Hgb] Patient Status: [Full code] Diet: [Regular] Pending Orders: [N/A] Pending Results/Labs:[CEA ] Pending MD notification:[N/A] Latest Vital Signs: Temperature 98.1 , Pulse 81 , B/P 121 /81 , Respiratory Rate 20 , O2 SAT 98 , Room Air, O2 Flow Rate . Vital Sign Comment: [] EKG Rhythm: Sinus Rhythm Rhythm change?: N MD Notified?: N - MD Response: Latest [place] Fall Score: 20 Fall Risk: Low Risk Safety Measures: Call light Within Reach, Bed Alarm Zone 1, Side Rails Side Rails x3, Bed position Low and Locked. Fall Precautions: Yellow Socks Patient Fall Education Report given to [RAFIQ Hanna].
[2020-05-19 20:00] VITALS: BP 118/52
[2020-05-19] MEDS: Iron Sucrose 100 MG in NS 55 ML IVPB SCH (21:15)
[2020-05-20 00:44] VITALS: BP 116/56
[2020-05-20 04:00] VITALS: BP 111/60
[2020-05-20 06:12] LABS: HEMOGLOBIN 7.8 G/DL (12.0-16.0); MEAN CORPUSCULAR VOLUME 67 FL (80-99); PLATELET COUNT 237 K/UL (150-450); RED CELL DISTRIBUTION WIDTH 29.1 % (11.6-14.8); WHITE BLOOD COUNT 9.6 K/UL (4.8-10.8)
--- NOTE | 2020-05-20 06:21 | Hematology/Onc Progress Note ---
Assessment/Plan Assessment/Plan Assessment and recs # Anemia of iron deficiency from abnormal uterine bleeding --> recommend outpatient ocps, now has been off them for 1-2 weeks --> recommend continous Ocps in the future once discharged --> anemia panel has been ordered --> will order Venofer x 5 days --> teacher selection specialist recs has been reviewed --> hgb 3.5-->5.7-->8.5 # Dysfunctional uterine bleeding --> teacher selection specialist has evaluated in the past # Hypotension likely due from severe anemia --> transfusion would help # Tachycardia --> likely due to above # Dvt ppx scds Appreciate consultation and kuldeep RN Subjective HEENT: Denies: no symptoms, eye pain, blurred vision, tearing, double vision, ear pain, ear discharge, nose pain, nose congestion, throat pain, throat swelling, mouth pain, mouth swelling, other Cardiovascular: Denies: no symptoms, chest pain, edema, irregular heart rate, lightheadedness, palpitations, syncope, other Gastrointestinal/Abdominal: Denies: no symptoms, abdomen distended, abdominal pain, black stools, tarry stools, blood in stool, constipated, diarrhea, difficulty swallowing, nausea, poor appetite, poor fluid intake, rectal bleeding, vomiting, other Genitourinary: Denies: no symptoms, burning, discharge, frequency, flank pain, hematuria, incontinence, pain, urgency, other Neurologic/Psychiatric: Denies: no symptoms, anxiety, depressed, emotional problems, headache, numbness, paresthesia, pre-existing deficit, seizure, tingling, tremors, weakness, other Endocrine: Denies: no symptoms, excessive sweating, flushing, intolerance to cold, intolerance to heat, increased hunger, increased thirst, increased urine, unexplained weight gain, unexplained weight loss, other Hematologic/Lymphatic: Denies: no symptoms, anemia, easy bleeding, easy bruising, adenopathy, other Allergies: Coded Allergies: NO KNOWN ALLERGIES (Unverified Allergy, Unknown, 03/06/15) Subjective 3/3 meds noted, has been started on iv iron, hgb is improved 3/4 labs are noted, ferritinw as low, on venofer, labs reviewed Objective Objective Current Medications Medications (Trade) Dose Ordered Sig/Elisa Route PRN Reason Start Time Stop Time Status Last Admin Dose Admin Docusate Sodium (Colace) 100 mg TWICE A DAY ORAL 3/2/21 18:00 06/17/20 17:59 05/19/20 08:31 Famotidine (Pepcid) 20 mg BID ORAL 05/18/20 18:00 08/16/20 17:59 05/19/20 08:31 Iron Sucrose 100 mg/Sodium Chloride 60 ml @ 240 mls/hr BEDTIME IVPB 05/19/20 21:00 05/23/20 21:14 05/19/20 21:15 Potassium Chloride (K-Dur) 40 meq DAILY ORAL 05/19/20 09:00 08/17/20 08:59 05/19/20 08:32 Sodium Chloride 1,000 ml @ 75 mls/hr [id number] IV 05/19/20 08:00 06/18/20 07:59 05/19/20 22:13 Last 24 Hour Vital Signs Date Time Temp Pulse Resp B/P (MAP) Pulse Ox O2 Delivery O2 Flow Rate FiO2 05/20/20 04:00 58 05/20/20 04:00 98.7 67 18 111/60 (77) 99 05/20/20 00:44 98.1 65 18 116/56 (76) 98 05/20/20 00:00 61 05/19/20 21:00 Room Air 05/19/20 20:00 98.0 78 18 118/52 (74) 100 05/19/20 20:00 82 05/19/20 16:00 98.1 81 20 121/81 (94) 98 05/19/20 16:00 66 05/19/20 12:00 82 05/19/20 12:00 96.8 75 18 118/75 (89) 98 05/19/20 09:00 Room Air 05/19/20 08:00 65 05/19/20 08:00 98.5 56 20 117/57 (77) 98 05/19/20 04:00 98.0 67 18 118/65 (82) 98 05/19/20 04:00 68 05/19/20 00:00 70 05/19/20 00:00 98.7 68 18 101/55 (70) 100 05/18/20 21:00 Room Air 05/18/20 20:00 98.9 84 19 100/55 (70) 98 3/2/21 20:00 90 05/18/20 16:00 101 05/18/20 16:00 98.4 82 18 104/60 (75) 99 05/18/20 12:00 97.5 96 20 94/43 (60) 99 05/18/20 12:00 84 05/18/20 09:00 Room Air 05/18/20 08:00 86 05/18/20 08:00 97.9 84 18 100/53 (69) 100 Intake and Output 05/19/20 05/20/20 19:00 07:00 Intake Total 1000 ml Balance 1000 ml Intake Oral 250 ml IV Total 750 ml # Voids 1 # Bowel Movements 1 Labs Test 05/17/20 22:48 05/17/20 23:54 05/18/20 08:35 05/19/20 06:10 White Blood Count 11.9 K/UL (4.8-10.8) 10.7 K/UL (4.8-10.8) 8.3 K/UL (4.8-10.8) Red Blood Count 2.81 M/UL (4.20-5.40) 3.40 M/UL (4.20-5.40) 3.91 M/UL (4.20-5.40) Hemoglobin 3.5 G/DL (12.0-16.0) 5.7 G/DL (12.0-16.0) 7.8 G/DL (12.0-16.0) Hematocrit 13.9 % (37.0-47.0) 19.7 % (37.0-47.0) 26.2 % (37.0-47.0) Mean Corpuscular Volume 50 FL (80-99) 58 FL (80-99) 67 FL (80-99) Mean Corpuscular Hemoglobin 12.5 PG (27.0-31.0) 16.6 PG (27.0-31.0) 20.0 PG (27.0-31.0) Mean Corpuscular Hemoglobin Concent 25.3 G/DL (32.0-36.0) 28.7 G/DL (32.0-36.0) 29.8 G/DL (32.0-36.0) Red Cell Distribution Width 16.2 % (11.6-14.8) 24.8 % (11.6-14.8) 28.9 % (11.6-14.8) Platelet Count 376 K/UL (150-450) 287 K/UL (150-450) 229 K/UL (150-450) Mean Platelet Volume 5.7 FL (6.5-10.1) 5.5 FL (6.5-10.1) 5.9 FL (6.5-10.1) Neutrophils (%) (Auto) % (45.0-75.0) % (45.0-75.0) 60.8 % (45.0-75.0) Lymphocytes (%) (Auto) % (20.0-45.0) % (20.0-45.0) 30.0 % (20.0-45.0) Monocytes (%) (Auto) % (1.0-10.0) % (1.0-10.0) 7.2 % (1.0-10.0) Eosinophils (%) (Auto) % (0.0-3.0) % (0.0-3.0) 1.4 % (0.0-3.0) Basophils (%) (Auto) % (0.0-2.0) % (0.0-2.0) 0.6 % (0.0-2.0) Differential Total Cells Counted 100 100 Neutrophils % (Manual) 69 % (45-75) 75 % (45-75) Lymphocytes % (Manual) 21 % (20-45) 20 % (20-45) Monocytes % (Manual) 8 % (1-10) 4 % (1-10) Eosinophils % (Manual) 0 % (0-3) 1 % (0-3) Basophils % (Manual) 0 % (0-2) 0 % (0-2) Band Neutrophils 2 % (0-8) 0 % (0-8) Platelet Estimate Adequate Adequate Platelet Morphology Normal Normal Polychromasia 1+ Hypochromasia 3+ 3+ Anisocytosis 2+ 3+ Microcytosis 2+ Tear Drop Cells 1+ Schistocytes Occasional Sodium Level 136 MMOL/L (136-145) 139 MMOL/L (136-145) Potassium Level 3.2 MMOL/L (3.5-5.1) 4.0 MMOL/L (3.5-5.1) Chloride Level 101 MMOL/L (98-107) 106 MMOL/L (98-107) Carbon Dioxide Level 25 MMOL/L (21-32) 23 MMOL/L (21-32) Anion Gap 10 mmol/L (5-15) 10 mmol/L (5-15) Blood Urea Nitrogen 10 mg/dL (7-18) 8 mg/dL (7-18) Creatinine 1.1 MG/DL (0.55-1.30) 0.9 MG/DL (0.55-1.30) Estimat Glomerular Filtration Rate > 60 mL/min (>60) > 60 mL/min (>60) Glucose Level 106 MG/DL (74-106) 83 MG/DL (74-106) Calcium Level 9.6 MG/DL (8.5-10.1) 9.0 MG/DL (8.5-10.1) Urine Color Yellow Urine Appearance Clear Urine pH 7 (4.5-8.0) Urine Specific [place] 1.005 (1.005-1.035) Urine Protein Negative (NEGATIVE) Urine Glucose (UA) Negative (NEGATIVE) Urine Ketones Negative (NEGATIVE) Urine Blood 2+ (NEGATIVE) Urine Nitrite Negative (NEGATIVE) Urine Bilirubin Negative (NEGATIVE) Urine Urobilinogen Normal MG/DL (0.0-1.0) Urine Leukocyte Esterase Negative (NEGATIVE) Urine RBC 5-10 /HPF (0 - 2) Urine WBC 0-2 /HPF (0 - 2) Urine Squamous Epithelial Cells Few /LPF (NONE/OCC) Urine Bacteria None /HPF (NONE) Urine HCG, Qualitative Negative (NEGATIVE) Reticulocyte Count 1.6 % (0.5-2.0) Fibrinogen 367 mg/dL (200-400) Iron Level 29 ug/dL (50-175) Total Iron Binding Capacity 404 ug/dL (250-450) Percent Iron Saturation 7 % (15-50) Unsaturated Iron Binding 375 ug/dL (112-346) Ferritin 7 NG/ML (8-388) Vitamin B12 Level 417 PG/ML (193-986) Folate 38.6 NG/ML (8.6-58.9) Hemoglobin A1c 5.0 % (4.3-6.0) Uric Acid 5.0 MG/DL (2.6-7.2) Phosphorus Level 3.6 MG/DL (2.5-4.9) Magnesium Level 1.9 MG/DL (1.8-2.4) Total Bilirubin 0.2 MG/DL (0.2-1.0) Gamma Glutamyl Transpeptidase 13 U/L (5-85) Aspartate Amino Transf (AST/SGOT) 11 U/L (15-37) Alanine Aminotransferase (ALT/SGPT) 11 U/L (12-78) Alkaline Phosphatase 52 U/L (46-116) C-Reactive Protein, Quantitative 1.1 mg/dL (0.00-0.90) Pro-B-Type Natriuretic Peptide 253 pg/mL (0-125) Total Protein 6.8 G/DL (6.4-8.2) Albumin 3.0 G/DL (3.4-5.0) Globulin 3.8 g/dL Albumin/Globulin Ratio 0.8 (1.0-2.7) Triglycerides Level 70 MG/DL (30-150) Cholesterol Level 170 MG/DL (< 200) LDL Cholesterol 100 mg/dL (<100) HDL Cholesterol 57 MG/DL (40-60) Cholesterol/HDL Ratio 3.0 (3.3-4.4) Thyroid Stimulating Hormone (TSH) 2.794 uiU/mL (0.358-3.740) Test 05/20/20 05:40 Height (Feet): 5 Height (Inches): 2.00 Weight (Pounds): 232 Objective Physical Exam Vitals reviewed General Appearance: well appearing Head: normocephalic, atraumatic Eyes: bilateral eye PERRL, bilateral eye EOMI ENT: hearing grossly normal, normal pharynx Neck: full range of motion, supple Respiratory: chest non-tender, lungs clear, normal breath sounds Cardiovascular: regular rate, rhythm, no murmur Gastrointestinal: normal bowel sounds, non tender Musculoskeletal: back normal, normal range of motion, gait/station normal Psychiatric: mood/affect normal Jamil Cooper MD May 20, 2020 06:21
[2020-05-20 06:40] LABS: ANION GAP 12 mmol/L (5-15); BLOOD UREA NITROGEN 8 mg/dL (7-18); CARBON DIOXIDE 22 MMOL/L (21-32); CHLORIDE 105 MMOL/L (98-107); CREATININE 0.9 MG/DL (0.55-1.30); POTASSIUM 3.7 MMOL/L (3.5-5.1); SODIUM 139 MMOL/L (136-145)
--- NOTE | 2020-05-20 07:10 | NUR ---
NURSE HAND-OFF REPORT: Important Events on Shift:[Patient able to walk around with a steady gait] Patient Status: [Stable] Diet:[Regular diet] Pending Orders: [] Pending Results/Labs:[] Pending MD notification:[] Latest Vital Signs: Temperature 98.7 , Pulse 67 , B/P 111 /60 , Respiratory Rate 18 , O2 SAT 99 , Room Air, O2 Flow Rate . Vital Sign Comment: [] EKG Rhythm: Sinus Rhythm Rhythm change?: Y MD Notified?: N - MD Response: Latest [place] Fall Score: 20 Fall Risk: Low Risk Safety Measures: Call light Within Reach, Bed Alarm Zone 1, Side Rails Side Rails x3, Bed position Low and Locked. Fall Precautions: Yellow Socks Patient Fall Education Report given to [RAFIQ Quiroz].
[2020-05-20 08:00] VITALS: BP 125/68
--- NOTE | 2020-05-20 08:02 | NUR ---
RD ASSESSMENT & RECOMMENDATIONS SEE CARE ACTIVITY FOR COMPLETE ASSESSMENT DAILY ESTIMATED NEEDS: Needs based on cardiac 63.7kg 25-30 kcals/kg 9209-1023 total kcals 1-1.2 g protein/kg 64-76 g total protein 25-30 mL/kg 4583-9301 total fluid mLs NUTRITION DIAGNOSIS: Altered nutrition related lab values r/t anemia and vaginal bleeding, as evidenced by Hgb 3.5 on adm, s/p PRBC. CURRENT DIET:Regular/ [facility] PO DIET RECOMMENDATIONS: regular diet as tolerated ADDITIONAL RECOMMENDATIONS: 1) rec Bed side BG checks/ accuchecks Pt on [facility] diet w/ BG wnl 2) Obtain a standing scale wt as able Bed wt reads 114.2kg Stated wt of 105.0kg
[2020-05-20] MEDS: Docusate 100mg cap ORAL SCH ×2 (08:20→17:12)
[2020-05-20 12:00] VITALS: BP 132/78
--- NOTE | 2020-05-20 12:20 | Nephrology Progress Note ---
Assessment/Plan Problem List: (1) Hypokalemia (2) Anemia (3) Dysfunctional uterine bleeding (4) Proteinuria (5) Obesity Assessment Hypokalemia Severe anemia Morbid obesity Plan May 20: Labs reviewed. Hemoglobin is stable. Renal parameters stable. Continue per consultants. Stable from renal standpoint of view. IV fluid discontinued. May 19: Labs reviewed. Electrolytes and renal parameters stable. Hemoglobin higher. Hemoglobin A1c and TSH are within normal limits. Previously: IV iron Potassium supplement Gastric support Check TSH, lipid panel, hemoglobin A1c Continue per consultants Per orders Subjective ROS Limited/Unobtainable: No Constitutional: Reports: malaise Objective Objective Last 24 Hour Vital Signs Date Time Temp Pulse Resp B/P (MAP) Pulse Ox O2 Delivery O2 Flow Rate FiO2 05/20/20 10:13 56 05/20/20 10:13 Room Air 05/20/20 08:00 97.9 68 18 125/68 (87) 95 05/20/20 04:00 58 05/20/20 04:00 98.7 67 18 111/60 (77) 99 05/20/20 00:44 98.1 65 18 116/56 (76) 98 05/20/20 00:00 61 05/19/20 21:00 Room Air 05/19/20 20:00 98.0 78 18 118/52 (74) 100 05/19/20 20:00 82 05/19/20 16:00 98.1 81 20 121/81 (94) 98 05/19/20 16:00 66 Intake and Output 05/19/20 05/20/20 19:00 07:00 Intake Total 1000 ml 240 ml Balance 1000 ml 240 ml Intake Oral 250 ml 240 ml IV Total 750 ml # Voids 1 8 # Bowel Movements 1 Current Medications Medications (Trade) Dose Ordered Sig/Elisa Route PRN Reason Start Time Stop Time Status Last Admin Dose Admin Docusate Sodium (Colace) 100 mg TWICE A DAY ORAL 05/18/20 18:00 06/17/20 17:59 05/19/20 08:31 Famotidine (Pepcid) 20 mg BID ORAL 05/18/20 18:00 08/16/20 17:59 05/19/20 08:31 Iron Sucrose 100 mg/Sodium Chloride 60 ml @ 240 mls/hr BEDTIME IVPB 05/19/20 21:00 05/23/20 21:14 05/19/20 21:15 Potassium Chloride (K-Dur) 40 meq DAILY ORAL 05/19/20 09:00 08/17/20 08:59 05/20/20 08:20 Sodium Chloride 1,000 ml @ 75 mls/hr [id number] IV 05/19/20 08:00 06/18/20 07:59 05/20/20 11:48 Laboratory Tests 05/20/20 05:40: White Blood Count 9.6, Red Blood Count 3.90L, Hemoglobin 7.8L, Hematocrit 26.0L, Mean Corpuscular Volume 67L, Mean Corpuscular Hemoglobin 19.9L, Mean Corpuscular Hemoglobin Concent 29.9L, Red Cell Distribution Width 29.1H, Platelet Count 237, Mean Platelet Volume 6.6, Neutrophils (%) (Auto) , Lymphocytes (%) (Auto) , Monocytes (%) (Auto) , Eosinophils (%) (Auto) , Basophils (%) (Auto) , Sodium Level 139, Potassium Level 3.7, Chloride Level 105, Carbon Dioxide Level 22, Anion Gap 12, Blood Urea Nitrogen 8, Creatinine 0.9, Estimat Glomerular Filt ration Rate > 60, Glucose Level 77, Calcium Level 9.0 Height (Feet): 5 Height (Inches): 2.00 Weight (Pounds): 232 General Appearance: no apparent distress Cardiovascular: normal rate Respiratory/Chest: decreased breath sounds Abdomen: distended Kt Pittman MD May 20, 2020 12:20
[2020-05-20 16:00] VITALS: BP 105/56
[2020-05-20 20:00] VITALS: BP 94/49
[2020-05-20] MEDS: Iron Sucrose 100 MG in NS 55 ML IVPB SCH (20:37)
--- NOTE | 2020-05-20 20:45 | NUR ---
NURSE NOTES: Assumed pt's care at 1900 from Louisa Stephens. Pt is aox4, able to make needs known. No acute distress noted, respirations even and unlabored. Pt is ambulatory, gait is steady. IV site patent & intact, no signs of infiltration noted. Safety and comfort measures maintained, call light within reach.
--- NOTE | 2020-05-20 20:57 | General Progress Note ---
Subjective ROS Limited/Unobtainable: Yes Allergies: Coded Allergies: NO KNOWN ALLERGIES (Unverified Allergy, Unknown, 03/06/15) Objective Last 24 Hour Vital Signs Date Time Temp Pulse Resp B/P (MAP) Pulse Ox O2 Delivery O2 Flow Rate FiO2 05/20/20 16:00 59 05/20/20 16:00 98.1 82 105/56 (72) 05/20/20 12:00 98.8 62 19 132/78 (96) 98 05/20/20 12:00 63 05/20/20 10:13 56 05/20/20 10:13 Room Air 05/20/20 08:00 97.9 68 18 125/68 (87) 95 05/20/20 04:00 58 05/20/20 04:00 98.7 67 18 111/60 (77) 99 05/20/20 00:44 98.1 65 18 116/56 (76) 98 05/20/20 00:00 61 05/19/20 21:00 Room Air Intake and Output 05/19/20 05/20/20 19:00 07:00 Intake Total 1000 ml 240 ml Balance 1000 ml 240 ml Intake Oral 250 ml 240 ml IV Total 750 ml # Voids 1 8 # Bowel Movements 1 Laboratory Tests 05/20/20 05:40: White Blood Count 9.6, Red Blood Count 3.90L, Hemoglobin 7.8L, Hematocrit 26.0L, Mean Corpuscular Volume 67L, Mean Corpuscular Hemoglobin 19.9L, Mean Corpuscular Hemoglobin Concent 29.9L, Red Cell Distribution Width 29.1H, Platelet Count 237, Mean Platelet Volume 6.6, Neutrophils (%) (Auto) , Lymphocytes (%) (Auto) , Monocytes (%) (Auto) , Eosinophils (%) (Auto) , Basophils (%) (Auto) , Sodium Level 139, Potassium Level 3.7, Chloride Level 105, Carbon Dioxide Level 22, Anion Gap 12, Blood Urea Nitrogen 8, Creatinine 0.9, Estimat Glomerular Filtration Rate > 60, Glucose Level 77, Calcium Level 9.0 Height (Feet): 5 Height (Inches): 2.00 Weight (Pounds): 232 Assessment/Plan Problem List: (1) Dysfunctional uterine bleeding ICD Codes: N93.8 - Other specified abnormal uterine and vaginal bleeding SNOMED: 27220533650800 (2) Hypokalemia ICD Codes: E87.6 - Hypokalemia SNOMED: 11100750 (3) Vaginal bleeding ICD Codes: N93.9 - Abnormal uterine and vaginal bleeding, unspecified SNOMED: 929963675 (4) Anemia ICD Codes: D64.9 - Anemia, unspecified SNOMED: 938333920 Qualifiers: Qualified Codes: D64.9 - Anemia, unspecified (5) Proteinuria ICD Codes: R80.9 - Proteinuria, unspecified SNOMED: 44124387 (6) Obesity ICD Codes: E66.9 - Obesity, unspecified SNOMED: 539102687, 469666343 Status: progressing Assessment/Plan: still anemic despite transfusion no change in h/h vaginal bleeding monitor for further bleeding check cbc in Marianela Cardona MD May 20, 2020 20:57
[2020-05-21 00:15] VITALS: BP 103/54
[2020-05-21 04:37] VITALS: BP 110/56
--- NOTE | 2020-05-21 06:26 | Hematology/Onc Progress Note ---
Assessment/Plan Assessment/Plan Assessment and recs # Anemia of iron deficiency from abnormal uterine bleeding --> recommend outpatient ocps, now has been off them for 1-2 weeks --> recommend continous Ocps in the future once discharged --> anemia panel has been ordered --> will order Venofer x 5 days --> ob/gyn doctor recs has been reviewed --> hgb 3.5-->5.7-->8.5-->7.8 # Dysfunctional uterine bleeding --> ob/gyn doctor has evaluated in the past, has prescription # Hypotension likely due from severe anemia --> transfusion would help # Tachycardia --> likely due to above # Dvt ppx scds Appreciate consultation and kuldeep RN Subjective Constitutional: Denies: no symptoms, chills, fever, malaise, weakness, other HEENT: Denies: no symptoms, eye pain, blurred vision, tearing, double vision, ear pain, ear discharge, nose pain, nose congestion, throat pain, throat swelling, mouth pain, mouth swelling, other Gastrointestinal/Abdominal: Denies: no symptoms, abdomen distended, abdominal pain, black stools, tarry stools, blood in stool, constipated, diarrhea, difficulty swallowing, nausea, poor appetite, poor fluid intake, rectal bleeding, vomiting, other Genitourinary: Denies: no symptoms, burning, discharge, frequency, flank pain, hematuria, incontinence, pain, urgency, other Neurologic/Psychiatric: Denies: no symptoms, anxiety, depressed, emotional problems, headache, numbness, paresthesia, pre-existing deficit, seizure, tingling, tremors, weakness, other Endocrine: Denies: no symptoms, excessive sweating, flushing, intolerance to cold, intolerance to heat, increased hunger, increased thirst, increased urine, unexplained weight gain, unexplained weight loss, other Hematologic/Lymphatic: Denies: no symptoms, anemia, easy bleeding, easy bruising, adenopathy, other Allergies: Coded Allergies: NO KNOWN ALLERGIES (Unverified Allergy, Unknown, 03/06/15) Subjective 3/3 meds noted, has been started on iv iron, hgb is improved 3/4 labs are noted, ferritinw as low, on venofer, labs reviewed 3/5 labs reviewed, meds noted, no bleeding, hgb is stable, pending today Objective Objective Current Medications Medications (Trade) Dose Ordered Sig/Elisa Route PRN Reason Start Time Stop Time Status Last Admin Dose Admin Docusate Sodium (Colace) 100 mg TWICE A DAY ORAL 05/18/20 18:00 06/17/20 17:59 05/19/20 08:31 Famotidine (Pepcid) 20 mg BID ORAL 05/18/20 18:00 08/16/20 17:59 05/19/20 08:31 Iron Sucrose 100 mg/Sodium Chloride 60 ml @ 240 mls/hr BEDTIME IVPB 05/19/20 21:00 05/23/20 21:14 05/20/20 20:37 Potassium Chloride (K-Dur) 40 meq DAILY ORAL 05/19/20 09:00 08/17/20 08:59 05/20/20 08:20 Last 24 Hour Vital Signs Date Time Temp Pulse Resp B/P (MAP) Pulse Ox O2 Delivery O2 Flow Rate FiO2 05/21/20 04:37 98.5 66 18 110/56 (74) 98 05/21/20 04:36 57 05/21/20 00:15 98.0 63 18 103/54 (70) 100 05/21/20 00:00 58 05/20/20 21:53 Room Air 05/20/20 20:00 71 05/20/20 20:00 97.9 71 18 94/49 (64) 100 05/20/20 16:00 59 05/20/20 16:00 98.1 82 105/56 (72) 05/20/20 12:00 98.8 62 19 132/78 (96) 98 05/20/20 12:00 63 05/20/20 10:13 56 05/20/20 10:13 Room Air 05/20/20 08:00 97.9 68 18 125/68 (87) 95 05/20/20 04:00 58 05/20/20 04:00 98.7 67 18 111/60 (77) 99 05/20/20 00:44 98.1 65 18 116/56 (76) 98 05/20/20 00:00 61 05/19/20 21:00 Room Air 05/19/20 20:00 98.0 78 18 118/52 (74) 100 05/19/20 20:00 82 05/19/20 16:00 98.1 81 20 121/81 (94) 98 05/19/20 16:00 66 05/19/20 12:00 82 05/19/20 12:00 96.8 75 18 118/75 (89) 98 05/19/20 09:00 Room Air 05/19/20 08:00 65 05/19/20 08:00 98.5 56 20 117/57 (77) 98 Intake and Output 05/20/20 05/21/20 19:00 07:00 # Voids 6 # Bowel Movements 1 Labs Test 05/18/20 08:35 05/19/20 06:10 05/20/20 05:40 White Blood Count 10.7 K/UL (4.8-10.8) 8.3 K/UL (4.8-10.8) 9.6 K/UL (4.8-10.8) Red Blood Count 3.40 M/UL (4.20-5.40) 3.91 M/UL (4.20-5.40) 3.90 M/UL (4.20-5.40) Hemoglobin 5.7 G/DL (12.0-16.0) 7.8 G/DL (12.0-16.0) 7.8 G/DL (12.0-16.0) Hematocrit 19.7 % (37.0-47.0) 26.2 % (37.0-47.0) 26.0 % (37.0-47.0) Mean Corpuscular Volume 58 FL (80-99) 67 FL (80-99) 67 FL (80-99) Mean Corpuscular Hemoglobin 16.6 PG (27.0-31.0) 20.0 PG (27.0-31.0) 19.9 PG (27.0-31.0) Mean Corpuscular Hemoglobin Concent 28.7 G/DL (32.0-36.0) 29.8 G/DL (32.0-36.0) 29.9 G/DL (32.0-36.0) Red Cell Distribution Width 24.8 % (11.6-14.8) 28.9 % (11.6-14.8) 29.1 % (11.6-14.8) Platelet Count 287 K/UL (150-450) 229 K/UL (150-450) 237 K/UL (150-450) Mean Platelet Volume 5.5 FL (6.5-10.1) 5.9 FL (6.5-10.1) 6.6 FL (6.5-10.1) Neutrophils (%) (Auto) % (45.0-75.0) 60.8 % (45.0-75.0) % (45.0-75.0) Lymphocytes (%) (Auto) % (20.0-45.0) 30.0 % (20.0-45.0) % (20.0-45.0) Monocytes (%) (Auto) % (1.0-10.0) 7.2 % (1.0-10.0) % (1.0-10.0) Eosinophils (%) (Auto) % (0.0-3.0) 1.4 % (0.0-3.0) % (0.0-3.0) Basophils (%) (Auto) % (0.0-2.0) 0.6 % (0.0-2.0) % (0.0-2.0) Differential Total Cells Counted 100 Neutrophils % (Manual) 75 % (45-75) Lymphocytes % (Manual) 20 % (20-45) Monocytes % (Manual) 4 % (1-10) Eosinophils % (Manual) 1 % (0-3) Basophils % (Manual) 0 % (0-2) Band Neutrophils 0 % (0-8) Platelet Estimate Adequate Platelet Morphology Normal Hypochromasia 3+ Anisocytosis 3+ Reticulocyte Count 1.6 % (0.5-2.0) Fibrinogen 367 mg/dL (200-400) Iron Level 29 ug/dL (50-175) Total Iron Binding Capacity 404 ug/dL (250-450) Percent Iron Saturation 7 % (15-50) Unsaturated Iron Binding 375 ug/dL (112-346) Ferritin 7 NG/ML (8-388) Vitamin B12 Level 417 PG/ML (193-986) Folate 38.6 NG/ML (8.6-58.9) Sodium Level 139 MMOL/L (136-145) 139 MMOL/L (136-145) Potassium Level 4.0 MMOL/L (3.5-5.1) 3.7 MMOL/L (3.5-5.1) Chloride Level 106 MMOL/L (98-107) 105 MMOL/L (98-107) Carbon Dioxide Level 23 MMOL/L (21-32) 22 MMOL/L (21-32) Anion Gap 10 mmol/L (5-15) 12 mmol/L (5-15) Blood Urea Nitrogen 8 mg/dL (7-18) 8 mg/dL (7-18) Creatinine 0.9 MG/DL (0.55-1.30) 0.9 MG/DL (0.55-1.30) Estimat Glomerular Filtration Rate > 60 mL/min (>60) > 60 mL/min (>60) Glucose Level 83 MG/DL (74-106) 77 MG/DL (74-106) Hemoglobin A1c 5.0 % (4.3-6.0) Uric Acid 5.0 MG/DL (2.6-7.2) Calcium Level 9.0 MG/DL (8.5-10.1) 9.0 MG/DL (8.5-10.1) Phosphorus Level 3.6 MG/DL (2.5-4.9) Magnesium Level 1.9 MG/DL (1.8-2.4) Total Bilirubin 0.2 MG/DL (0.2-1.0) Gamma Glutamyl Transpeptidase 13 U/L (5-85) Aspartate Amino Transf (AST/SGOT) 11 U/L (15-37) Alanine Aminotransferase (ALT/SGPT) 11 U/L (12-78) Alkaline Phosphatase 52 U/L (46-116) C-Reactive Protein, Quantitative 1.1 mg/dL (0.00-0.90) Pro-B-Type Natriuretic Peptide 253 pg/mL (0-125) Total Protein 6.8 G/DL (6.4-8.2) Albumin 3.0 G/DL (3.4-5.0) Globulin 3.8 g/dL Albumin/Globulin Ratio 0.8 (1.0-2.7) Triglycerides Level 70 MG/DL (30-150) Cholesterol Level 170 MG/DL (< 200) LDL Cholesterol 100 mg/dL (<100) HDL Cholesterol 57 MG/DL (40-60) Cholesterol/HDL Ratio 3.0 (3.3-4.4) Thyroid Stimulating Hormone (TSH) 2.794 uiU/mL (0.358-3.740) Height (Feet): 5 Height (Inches): 2.00 Weight (Pounds): 232 Objective Physical Exam Vitals reviewed General Appearance: well appearing Head: normocephalic, atraumatic Eyes: bilateral eye PERRL, bilateral eye EOMI ENT: hearing grossly normal, normal pharynx Neck: full range of motion, supple Respiratory: chest non-tender, lungs clear, normal breath sounds Cardiovascular: regular rate, rhythm, no murmur Gastrointestinal: normal bowel sounds, non tender Musculoskeletal: back normal, normal range of motion, gait/station normal Psychiatric: mood/affect normal Jamil Cooper MD May 21, 2020 06:26
--- NOTE | 2020-05-21 06:33 | NUR ---
NURSE NOTES: Pt slept well throughout shift, uneventful night. Denies any bleeding, nausea & vomiting. Denies any pain. Safety and comfort measures maintained, call light within reach.
--- NOTE | 2020-05-21 07:22 | NUR ---
NURSE HAND-OFF REPORT: Important Events on Shift: Patient Status: Diet: Pending Orders: Pending Results/Labs: Pending MD notification: Latest Vital Signs: Temperature 98.5 , Pulse 66 , B/P 110 /56 , Respiratory Rate 18 , O2 SAT 98 , Room Air, O2 Flow Rate . Vital Sign Comment: EKG Rhythm: Sinus Rhythm Rhythm change?: N MD Notified?: N - MD Response: Latest [place] Fall Score: 20 Fall Risk: Low Risk Safety Measures: Call light Within Reach, Bed Alarm Zone 1, Side Rails Side Rails x3, Bed position Low and Locked. Fall Precautions: Yellow Socks Patient Fall Education Report given to .
[2020-05-21 08:00] VITALS: BP 131/74
--- NOTE | 2020-05-21 08:17 | NUR ---
patient wants to go home refused am labs, explained need for cbc with current condition as well as importance of venofer infusion, ama process explained patient will think about allowing blood draw will check back with patient to see what she decides
[2020-05-21] MEDS: Docusate 100mg cap ORAL SCH ×2 (08:57→18:00)
--- NOTE | 2020-05-21 11:46 | NUR ---
patient no in agreeance for lab draw call place to lab to have lab drawn
[2020-05-21 12:00] VITALS: BP 124/65
--- NOTE | 2020-05-21 13:05 | Nephrology Progress Note ---
Assessment/Plan Problem List: (1) Hypokalemia (2) Anemia (3) Dysfunctional uterine bleeding (4) Proteinuria (5) Obesity Assessment Hypokalemia Severe anemia Morbid obesity Plan May 21: No labs drawn today. Medication list reviewed. Continue per consultants. Will check lab tomorrow. May 20: Labs reviewed. Hemoglobin is stable. Renal parameters stable. Continue per consultants. Stable from renal standpoint of view. IV fluid discontinued. May 19: Labs reviewed. Electrolytes and renal parameters stable. Hemoglobin higher. Hemoglobin A1c and TSH are within normal limits. Previously: IV iron Potassium supplement Gastric support Check TSH, lipid panel, hemoglobin A1c Continue per consultants Per orders Subjective ROS Limited/Unobtainable: No Objective Objective Last 24 Hour Vital Signs Date Time Temp Pulse Resp B/P (MAP) Pulse Ox O2 Delivery O2 Flow Rate FiO2 05/21/20 09:00 Room Air 05/21/20 08:00 98.1 91 18 131/74 (93) 99 05/21/20 08:00 84 05/21/20 04:37 98.5 66 18 110/56 (74) 98 05/21/20 04:36 57 05/21/20 00:15 98.0 63 18 103/54 (70) 100 05/21/20 00:00 58 05/20/20 21:53 Room Air 05/20/20 20:00 71 05/20/20 20:00 97.9 71 18 94/49 (64) 100 05/20/20 16:00 59 05/20/20 16:00 98.1 82 105/56 (72) Intake and Output 05/20/20 05/21/20 19:00 07:00 # Voids 6 # Bowel Movements 1 Current Medications Medications (Trade) Dose Ordered Sig/Elisa Route PRN Reason Start Time Stop Time Status Last Admin Dose Admin Docusate Sodium (Colace) 100 mg TWICE A DAY ORAL 05/18/20 18:00 06/17/20 17:59 05/19/20 08:31 Famotidine (Pepcid) 20 mg BID ORAL 05/18/20 18:00 08/16/20 17:59 05/19/20 08:31 Iron Sucrose 100 mg/Sodium Chloride 60 ml @ 240 mls/hr BEDTIME IVPB 05/19/20 21:00 05/23/20 21:14 05/20/20 20:37 Potassium Chloride (K-Dur) 40 meq DAILY ORAL 05/19/20 09:00 08/17/20 08:59 05/21/20 09:47 Height (Feet): 5 Height (Inches): 2.00 Weight (Pounds): 232 General Appearance: no apparent distress Cardiovascular: normal rate Respiratory/Chest: decreased breath sounds Abdomen: distended Kt Pittman MD May 21, 2020 13:05
[2020-05-21 13:15] LABS: ANION GAP 12 mmol/L (5-15); BLOOD UREA NITROGEN 7 mg/dL (7-18); CALCIUM 9.5 MG/DL (8.5-10.1); CARBON DIOXIDE 22 MMOL/L (21-32); CHLORIDE 107 MMOL/L (98-107); CREATININE 0.8 MG/DL (0.55-1.30); POTASSIUM 4.3 MMOL/L (3.5-5.1); SODIUM 141 MMOL/L (136-145)
[2020-05-21 15:14] LABS: EOSINOPHILS % (AUTO) 1.4 % (0.0-3.0); HEMATOCRIT 26.9 % (37.0-47.0); HEMOGLOBIN 8.4 G/DL (12.0-16.0); LYMPHOCYTES % (AUTO) 23.5 % (20.0-45.0); MEAN CORPUSCULAR VOLUME 66 FL (80-99); NEUTROPHILS % (AUTO) 67.1 % (45.0-75.0); PLATELET COUNT 270 K/UL (150-450); RED BLOOD COUNT 4.08 M/UL (4.20-5.40); RED CELL DISTRIBUTION WIDTH 32.1 % (11.6-14.8); WHITE BLOOD COUNT 10.5 K/UL (4.8-10.8)
[2020-05-21 16:00] VITALS: BP 118/52
[2020-05-21] MEDS ORDERED: Tubing IV Secondary IV ONE (18:24)
--- NOTE | 2020-05-21 18:24 | NUR ---
DISCHARGE INSTRUCTIONS REVIEWED PLACING EMPHASIS ON DIET, ANEMIA WELL MD FOLLOWUP AND SS OF LOW HGB
--- NOTE | 2020-05-24 15:26 | Discharge Summary ---
Discharge Summary Discharge Summary _ Date of admission: 05/18/2020 Date of discharge: 05/21/[address] Cao History of Present Illness and Brief Hospital Course Ms. Pandya is a 24-year-old female with past medical history of dysfunctional uterine bleeding who presented to ED for evaluation of weakness and dizziness. Patient's hemoglobin level was found to be significantly low. Patient was transfused immediately. Patient was admitted to the hospital for blood transfusion and monitoring. Patient was also given IV iron. Her A1c and TSH were within normal limits. Patient was evaluated by a senior interactive developer who recommended continuous oral contraceptives for now. Patient was instructed to follow-up with PCP as soon as possible upon discharge given inability to adhere to medical management due to side effects of oral contraceptives. After transfusion, her H&H improved and remained stable. Patient was medically stable for discharge and was discharged home on 05/21/2020. Consultants: Gynecology Dr. Burciaga Nephrology Dr. Kruse Hematology oncology Dr. Cooper Discharge Condition Stable Discharge Activity As tolerated Discharge Diet Regular Final diagnoses Anemia of iron deficiency secondary to abnormal uterine bleeding Dysfunctional uterine bleeding Hypotension Tachycardia Hypokalemia Proteinuria Obesity I have been assigned to dictate discharge summary for this account. I was not involved in the patient's management Mo Gray May 24, 2020 15:26
== END 2020-05-21 18:25 | disposition home or self-care (01) | DRG 532 ==
LOC: EMR 22:05 → 2E 05-18 00:30 → EDBEDREQ 05-18 01:31
PROC: 30233N1 Transfusion of Nonautologous Red Blood Cells into Peripheral Vein, Percutaneous Approach (ICD-10-PCS; principal; 2020-05-18)
DX: N93.8 Other specified abnormal uterine and vaginal bleeding (principal); I95.9 Hypotension, unspecified; E87.6 Hypokalemia; E66.01 Morbid (severe) obesity due to excess calories; Z68.41 Body mass index [BMI] 40.0-44.9, adult; D50.0 Iron deficiency anemia secondary to blood loss (chronic); R00.0 Tachycardia, unspecified; E66.9 Obesity, unspecified
CPT/HCPCS: 36415; 80048; 80053; 80061; 81001; 81025; 82378; 82607; 82728; 82746; 82977; 83036; 83540; 83550; 83735; 83880; 84100; 84443; 84550; 85007; 85025; 85044; 85384; 86140; 86850; 86900; 86901; 86920; 93005; 96360; 99291; J7030; J8499